=== PATIENT | female | born 1980 | race Caucasian/White ===

== ENCOUNTER 2020-06-24 22:09 | Emergency (ER) | payer OTHER ==
[~2020-06-24] VITALS: Ht 139.7 cm; Wt 52.7 kg
[~2020-06-24 22:09] MED LIST: KLON0.5T PO; KLON1TAB PO; KLON2TAB PO; PAXI10TA12 PO
[2020-06-24] MEDS ORDERED: CLON0.5T2 PO (22:31)
[2020-06-24 23:11] LABS: HEMATOCRIT 41.6 % (36.0-47.0); HEMOGLOBIN 14.1 g/dl (12.0-15.5); MEAN CORPUSCULAR HEMOGLOBIN 33.3 pg (27.0-33.0); MEAN CORPUSCULAR HGB CONC 33.9 g/dl (32.0-36.5); MEAN CORPUSCULAR VOLUME 98.3 fl (80.0-96.0); PLATELET COUNT, AUTOMATED 382 10^3/uL (150-450); RED BLOOD COUNT 4.23 10^6/uL (4.00-5.40); WHITE BLOOD COUNT 15.1 10^3/uL (4.0-10.0)
[2020-06-24 23:19] LABS: AMPHETAMINES LEVEL URINE NEGATIVE (NEGATIVE); BARBITURATES URINE NEGATIVE (NEGATIVE); BENZODIAZEPINES URINE NEGATIVE (NEGATIVE); CANNABINOIDS URINE NEGATIVE (NEGATIVE); COCAINE METABOLITE URINE NEGATIVE (NEGATIVE); METHADONE URINE NEGATIVE (NEGATIVE); OPIATES URINE NEGATIVE (NEGATIVE); PHENCYCLIDINE URINE NEGATIVE (NEGATIVE)
[2020-06-24 23:22] LABS: HCG, SERUM QUALITATIVE NEGATIVE (NEGATIVE)
[2020-06-24 23:48] LABS: ALT/SGPT 15 U/L (12-78); BILIRUBIN,DIRECT < 0.1 MG/DL (0.0-0.2); BILIRUBIN,TOTAL 0.3 MG/DL (0.2-1.0); BLOOD UREA NITROGEN 3 MG/DL (7-18); CALCIUM LEVEL 8.4 MG/DL (8.5-10.1); CARBON DIOXIDE LEVEL 25 MEQ/L (21-32); CHLORIDE LEVEL 102 MEQ/L (98-107); CREATININE FOR GFR 0.66 MG/DL (0.55-1.30); ETHYL ALCOHOL (ETHANOL) 0.202 % (0.000-0.010); GLOMERULAR FILTRATION RATE > 60.0 (>60); GLUCOSE, FASTING 104 MG/DL (70-100); POTASSIUM SERUM 3.5 MEQ/L (3.5-5.1); SODIUM LEVEL 135 MEQ/L (136-145); TOTAL PROTEIN 7.3 GM/DL (6.4-8.2)
[2020-06-24 23:49] LABS: ACETAMINOPHEN LEVEL < 2.0 UG/ML (10.0-30.0); SALICYLATE LEVEL 7.6 MG/DL (5.0-30.0)
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
[2020-06-25] MEDS ORDERED: [UNRECOGNIZED DRUG - OTHER] (04:54)
[2020-06-25] MEDS ORDERED: DULO1CAP4 PO (08:12)
[2020-06-25] MEDS ORDERED: OMEP-221 PO (11:44)
--- NOTE | 2020-06-25 16:13 | ECGEPIP ---
[facility] - ED Test Date: 2020-06-25 Pat Name: MAXIM GUILLORY Department: Room: - Gender: Female Senior Writer: JUSTUS : 1980 Requested By: Digna Escobedo Order Number: [id number] Reading MD: Digna Escobedo Measurements Intervals [place] Rate: 95 P: 72 [place]: 130 QRS: 47 QRSD: 79 T: 38 QT: 331 QTc: 417 Interpretive Statements SINUS RHYTHM WITH MARKED SINUS ARRHYTHMIA NONSPECIFIC ST T WAVE CHANGES LOW QRS [place]OLT[place] LIMB LEADS NO PRIOR ECG FOR COMPARISON Electronically Signed on 06-25-2020 16:13:04 EDT by Digna Escobedo
[2020-06-25 18:42] VITALS: BP 119/68
== END 2020-06-25 18:44 ==
LOC: M ED 22:09
DX: F10.129 Alcohol abuse with intoxication, unspecified (principal); T14.91XA Suicide attempt, initial encounter; T50.902A Poisoning by unspecified drugs, medicaments and biological substances, intentional self-harm, initial encounter; Y92.89 Other specified places as the place of occurrence of the external cause; F33.9 Major depressive disorder, recurrent, unspecified; Z79.899 Other long term (current) drug therapy
CPT/HCPCS: 36415; 70450; 72125; 80048; 80076; 80307; 82375; 84443; 84703; 85027; 93005; 99284; G0480; U0002

== ENCOUNTER 2021-04-15 16:30 | Emergency (ER) | payer OTHER ==
[~2021-04-15] VITALS: Ht 139.7 cm; Wt 50.9 kg
[~2021-04-15 16:30] MED LIST changes: +CLON0.5T2 PO; +DULO1CAP4 PO; +OMEP-221 PO; +[UNRECOGNIZED DRUG - OTHER]
[2021-04-15 16:58] VITALS: BP_DIAS 76
[2021-04-15 19:30] VITALS: BP_SYST 116
== END 2021-04-15 19:33 | disposition home or self-care (01) ==
LOC: M ED 16:30
DX: F33.9 Major depressive disorder, recurrent, unspecified (principal); F10.920 Alcohol use, unspecified with intoxication, uncomplicated; F17.200 Nicotine dependence, unspecified, uncomplicated; Z79.899 Other long term (current) drug therapy; Z81.8 Family history of other mental and behavioral disorders

== ENCOUNTER → 2022-06-28 | Outpatient (REF) | payer OTHER ==
[~2022-06-28] MED LIST changes: -OMEP-221 PO; +OMEP40CA5 PO
== END ==
LOC: M SFHCDERM 12:48
PROVIDERS: ATTEND Nurse Practitioner Family
DX: R21 Rash and other nonspecific skin eruption (principal)

== ENCOUNTER 2022-07-07 21:05 | Inpatient (IN) | payer OTHER ==
[~2022-07-07] VITALS: Ht 139.7 cm; Wt 35.1 kg
[2022-07-08 00:29] LABS: BASO # 0.1 10^3/uL (0.0-0.2); BASO % 1.1 % (0.0-1.0); EOS # 0.2 10^3/uL (0.0-0.5); EOS % 1.7 % (0.0-3.0); HEMATOCRIT 39.1 % (36.0-47.0); HEMOGLOBIN 13.6 g/dl (12.0-15.5); LYMPH # 3.6 10^3/uL (1.5-5.0); LYMPH % 36.4 % (24.0-44.0); MEAN CORPUSCULAR HEMOGLOBIN 33.9 pg (27.0-33.0); MEAN CORPUSCULAR HGB CONC 34.8 g/dl (32.0-36.5); MEAN CORPUSCULAR VOLUME 97.5 fl (80.0-96.0); MONO # 0.8 10^3/uL (0.0-0.8); MONO % 7.7 % (2.0-8.0); NEUTROPHILS # 5.2 10^3/uL (1.5-8.5); NEUTROPHILS % 52.8 % (36.0-66.0); PLATELET COUNT, AUTOMATED 531 10^3/uL (150-450); RED BLOOD COUNT 4.01 10^6/uL (4.00-5.40); WHITE BLOOD COUNT 9.8 10^3/uL (4.0-10.0)
[2022-07-08 00:39] LABS: INR 0.98; PROTHROMBIN TIME 13.2 SECONDS (12.5-14.5)
[2022-07-08] MEDS ORDERED: THERTAB52 PO (01:02)
[2022-07-08] MEDS ORDERED: HOME MED LIST COMPLETE! XX SCH (01:05)
[2022-07-08 01:19] LABS: ALBUMIN 3.1 GM/DL (3.2-5.2); ALT/SGPT 20 U/L (12-78); BILIRUBIN,TOTAL 0.4 MG/DL (0.2-1.0); BLOOD UREA NITROGEN 4 MG/DL (7-18); CALCIUM LEVEL 8.7 MG/DL (8.5-10.1); CARBON DIOXIDE LEVEL 26 MEQ/L (21-32); CHLORIDE LEVEL 109 MEQ/L (98-107); CREATININE FOR GFR 0.47 MG/DL (0.55-1.30); GLOMERULAR FILTRATION RATE > 60.0 (>58); GLUCOSE, FASTING 96 MG/DL (70-100); MAGNESIUM LEVEL 2.1 MG/DL (1.8-2.4); POTASSIUM SERUM 4.1 MEQ/L (3.5-5.1); SODIUM LEVEL 142 MEQ/L (136-145); TOTAL PROTEIN 6.5 GM/DL (6.4-8.2)
[2022-07-08] MEDS ORDERED: MORPHINE 4 MG/ML 1ML VIAL/SYRINGE IV ONE (01:30)
[2022-07-08] MEDS ORDERED: ONDANSETRON 4MG 2ML VIAL IV ONE (01:40)
[2022-07-08 02:33] LABS: RSV AMPLIFICATION NEGATIVE (NEGATIVE)
[2022-07-08] MEDS ORDERED: HEPARIN SOD (PORCINE) 5000UNITS/ML 1ML VIAL/SYRINGE SC SCH (06:00)
[2022-07-08] MEDS: DOCUSATE SODIUM 100MG CAPSULE PO SCH ×2 (09:29→19:59)
[2022-07-08] MEDS: ONDANSETRON 4MG ORAL DISINTEGRATING TAB PO PRN ×3 (09:30→22:23)
[2022-07-08] MEDS: traMADol 50 MG TAB PO PRN ×2 (09:30→16:01)
[2022-07-08] MEDS: ACETAMINOPHEN TAB 650MG DOSE (2X325MG) PO PRN (09:30)
[2022-07-08] MEDS ORDERED: TRAM50TA2 (09:35)
[2022-07-08] MEDS ORDERED: ONDA4TAB6 PO (09:35)
[2022-07-08 09:51] LABS: HEMATOCRIT 45.1 % (36.0-47.0); HEMOGLOBIN 14.8 g/dl (12.0-15.5); MEAN CORPUSCULAR HEMOGLOBIN 32.7 pg (27.0-33.0); MEAN CORPUSCULAR HGB CONC 32.8 g/dl (32.0-36.5); MEAN CORPUSCULAR VOLUME 99.6 fl (80.0-96.0); RED BLOOD COUNT 4.53 10^6/uL (4.00-5.40); WHITE BLOOD COUNT 10.3 10^3/uL (4.0-10.0)
[2022-07-08 10:00] LABS: BLOOD UREA NITROGEN 3 MG/DL (7-18); CALCIUM LEVEL 9.5 MG/DL (8.5-10.1); CARBON DIOXIDE LEVEL 29 MEQ/L (21-32); CHLORIDE LEVEL 106 MEQ/L (98-107); CREATININE FOR GFR 0.71 MG/DL (0.55-1.30); GLOMERULAR FILTRATION RATE > 60.0 (>58); GLUCOSE, FASTING 76 MG/DL (70-100); POTASSIUM SERUM 4.1 MEQ/L (3.5-5.1); SODIUM LEVEL 138 MEQ/L (136-145)
[2022-07-08 10:04] LABS: PLATELET COUNT, AUTOMATED 667 10^3/uL (150-450)
[2022-07-08] MEDS: HEPARIN DRIP 25,000 UNITS in IV 1 EA IV SCH ×2 (14:02→21:06)
[2022-07-08 14:20] VITALS: BP 127/77
[2022-07-08] MEDS ORDERED: MORPHINE 2 MG/ML 1ML VIAL IV PRN (17:10)
[2022-07-08 19:55] VITALS: BP 108/66
[2022-07-08] MEDS: HEPARIN SOD (PORCINE) 5000UNITS/ML 1ML VIAL/SYRINGE IV PRN (21:07)
[2022-07-09] MEDS ORDERED: PROMETHAZINE 25 MG TAB PO ONE (03:00)
[2022-07-09] MEDS: HEPARIN SOD (PORCINE) 5000UNITS/ML 1ML VIAL/SYRINGE IV PRN ×4 (04:21→18:42)
[2022-07-09] MEDS: HEPARIN DRIP 25,000 UNITS in IV 1 EA IV SCH (04:22)
[2022-07-09 05:35] VITALS: BP 103/61
[2022-07-09] MEDS: PERCOCET 5MG/325MG TAB PO PRN ×3 (06:30→18:43)
[2022-07-09] MEDS: DOCUSATE SODIUM 100MG CAPSULE PO SCH ×2 (09:29→20:14)
[2022-07-09] MEDS ORDERED: ISOVUE-370 76% 100ML VIAL As Ordered ONE (10:11)
[2022-07-09 11:09] LABS: BASO # 0.1 10^3/uL (0.0-0.2); EOS # 0.2 10^3/uL (0.0-0.5); HEMOGLOBIN 14.7 g/dl (12.0-15.5); LYMPH # 3.4 10^3/uL (1.5-5.0); LYMPH % 46.8 % (24.0-44.0); MEAN CORPUSCULAR HEMOGLOBIN 33.3 pg (27.0-33.0); MEAN CORPUSCULAR HGB CONC 33.4 g/dl (32.0-36.5); MEAN CORPUSCULAR VOLUME 99.8 fl (80.0-96.0); MONO # 0.5 10^3/uL (0.0-0.8); MONO % 7.2 % (2.0-8.0); NEUTROPHILS % 41.9 % (36.0-66.0); PLATELET COUNT, AUTOMATED 619 10^3/uL (150-450); RED BLOOD COUNT 4.41 10^6/uL (4.00-5.40); WHITE BLOOD COUNT 7.2 10^3/uL (4.0-10.0)
[2022-07-09 11:17] LABS: TOTAL PROTEIN 7.4 GM/DL (6.4-8.2)
[2022-07-09 12:03] LABS: ERYTHROCYTE SEDIMENTATION RATE 22 mm/hr (0-20)
[2022-07-09 12:35] LABS: ALBUMIN 3.6 GM/DL (3.2-5.2); ALT/SGPT 23 U/L (12-78); BILIRUBIN,TOTAL 0.4 MG/DL (0.2-1.0); BLOOD UREA NITROGEN 4 MG/DL (7-18); C REACTIVE PROTEIN QUANTITATIV 1.21 MG/DL (0.00-0.30); CALCIUM LEVEL 9.9 MG/DL (8.5-10.1); CARBON DIOXIDE LEVEL 28 MEQ/L (21-32); CHLORIDE LEVEL 102 MEQ/L (98-107); GLOMERULAR FILTRATION RATE > 60.0 (>58); GLUCOSE, FASTING 82 MG/DL (70-100); MAGNESIUM LEVEL 2.2 MG/DL (1.8-2.4); PHOSPHORUS LEVEL 5.1 MG/DL (2.5-4.9); POTASSIUM SERUM 4.2 MEQ/L (3.5-5.1); SODIUM LEVEL 136 MEQ/L (136-145); TOTAL PROTEIN 8.1 GM/DL (6.4-8.2)
[2022-07-09 13:30] LABS: HEPATITIS B SURFACE ANTIGEN NEGATIVE (NEGATIVE)
[2022-07-09] MEDS: ONDANSETRON 4MG ORAL DISINTEGRATING TAB PO PRN ×2 (13:56→20:14)
[2022-07-09 14:00] VITALS: BP 115/77
[2022-07-09 14:02] LABS: HEPATITIS B CORE ANTIBODY IGM NEGATIVE (NEGATIVE)
[2022-07-09 22:00] VITALS: BP 112/75
[2022-07-10] MEDS: PERCOCET 5MG/325MG TAB PO PRN ×3 (00:45→22:10)
[2022-07-10] MEDS ORDERED: PROMETHAZINE 25 MG TAB PO ONE (01:05)
[2022-07-10 06:00] VITALS: BP 117/76
[2022-07-10 06:18] LABS: HEMATOCRIT 44.1 % (36.0-47.0); HEMOGLOBIN 14.7 g/dl (12.0-15.5); MEAN CORPUSCULAR HEMOGLOBIN 32.8 pg (27.0-33.0); MEAN CORPUSCULAR HGB CONC 33.3 g/dl (32.0-36.5); MEAN CORPUSCULAR VOLUME 98.4 fl (80.0-96.0); PLATELET COUNT, AUTOMATED 597 10^3/uL (150-450); RED BLOOD COUNT 4.48 10^6/uL (4.00-5.40); WHITE BLOOD COUNT 7.4 10^3/uL (4.0-10.0)
[2022-07-10 06:30] LABS: INR 0.93; PROTHROMBIN TIME 12.7 SECONDS (12.5-14.5)
[2022-07-10] MEDS: HEPARIN DRIP 25,000 UNITS in IV 1 EA IV SCH (06:44)
[2022-07-10 07:31] LABS: ALBUMIN 3.4 GM/DL (3.2-5.2); ALT/SGPT 23 U/L (12-78); BILIRUBIN,TOTAL 0.3 MG/DL (0.2-1.0); BLOOD UREA NITROGEN 4 MG/DL (7-18); CALCIUM LEVEL 9.3 MG/DL (8.5-10.1); CARBON DIOXIDE LEVEL 28 MEQ/L (21-32); CHLORIDE LEVEL 103 MEQ/L (98-107); GLOMERULAR FILTRATION RATE > 60.0 (>58); GLUCOSE, FASTING 82 MG/DL (70-100); POTASSIUM SERUM 4.5 MEQ/L (3.5-5.1); SODIUM LEVEL 140 MEQ/L (136-145)
[2022-07-10 08:37] VITALS: BP 117/77
[2022-07-10 08:38] VITALS: BP 117/77
[2022-07-10] MEDS: DOCUSATE SODIUM 100MG CAPSULE PO SCH ×2 (09:42→20:16)
[2022-07-10] MEDS: ONDANSETRON 4MG ORAL DISINTEGRATING TAB PO PRN ×2 (10:24→23:43)
[2022-07-10 11:07] LABS: CHOLESTEROL LEVEL 104 MG/DL (<200); CHOLESTEROL RISK RATIO 2.311 (<5); HDL CHOLESTEROL 45 MG/DL (>40); NON-HDL-C 59 MG/DL; TRIGLYCERIDES LEVEL 110 MG/DL (<150)
[2022-07-10 12:53] LABS: HIV 1&2 SCREEN CENTAUR NEGATIVE (NEGATIVE)
[2022-07-10] MEDS: PROMETHAZINE 25 MG TAB PO PRN ×2 (13:00→22:17)
[2022-07-10 13:38] VITALS: BP 120/95
[2022-07-10 13:48] VITALS: BP 120/95
[2022-07-10] MEDS: clonazePAM 0.5 MG TAB PO PRN (14:05)
[2022-07-10] MEDS: HEPARIN SOD (PORCINE) 5000UNITS/ML 1ML VIAL/SYRINGE IV PRN (14:19)
[2022-07-10] MEDS: ASPIRIN 81 MG CHEW TABLET PO SCH (14:27)
[2022-07-10] MEDS ORDERED: ISOVUE-370 76% 100ML VIAL As Ordered ONE (15:01)
[2022-07-10 15:11] LABS: CARDIOLIPIN IGA ANTIBODY <9 APL U/mL (0-11); CARDIOLIPIN IGG ANTIBODY <9 GPL U/mL (0-14); CARDIOLIPIN IGM ANTIBODY 45 MPL U/mL (0-12)
[2022-07-10 17:11] LABS: FREE KAPPA LIGHT CHAINS SERUM 34.2 mg/L (3.3-19.4); FREE LAMBDA LIGHT CHAINS SERUM 33.3 mg/L (5.7-26.3); KAPPA/LAMBDA RATIO SERUM 1.03 (0.26-1.65)
[2022-07-10 20:30] VITALS: BP 121/81
[2022-07-11 04:07] LABS: ANTI THROMBIN 3 ANTIGEN IMMUNO 100 % (72-124); ANTI THROMBIN 3 FUNCT ACTIVITY 111 % (75-135)
[2022-07-11 05:07] VITALS: BP 110/63
[2022-07-11 05:52] LABS: BASO # 0.1 10^3/uL (0.0-0.2); BASO % 1.4 % (0.0-1.0); EOS # 0.3 10^3/uL (0.0-0.5); EOS % 4.3 % (0.0-3.0); HEMATOCRIT 43.1 % (36.0-47.0); HEMOGLOBIN 14.1 g/dl (12.0-15.5); LYMPH # 3.2 10^3/uL (1.5-5.0); LYMPH % 54.7 % (24.0-44.0); MEAN CORPUSCULAR HEMOGLOBIN 32.5 pg (27.0-33.0); MEAN CORPUSCULAR HGB CONC 32.7 g/dl (32.0-36.5); MEAN CORPUSCULAR VOLUME 99.3 fl (80.0-96.0); MONO # 0.4 10^3/uL (0.0-0.8); MONO % 7.2 % (2.0-8.0); NEUTROPHILS # 1.9 10^3/uL (1.5-8.5); NEUTROPHILS % 32.2 % (36.0-66.0); PLATELET COUNT, AUTOMATED 532 10^3/uL (150-450); RED BLOOD COUNT 4.34 10^6/uL (4.00-5.40); WHITE BLOOD COUNT 5.8 10^3/uL (4.0-10.0)
[2022-07-11 06:07] LABS: INR 0.96; PROTHROMBIN TIME 12.9 SECONDS (12.5-14.5)
[2022-07-11 06:59] LABS: ALBUMIN 3.2 GM/DL (3.2-5.2); ALT/SGPT 20 U/L (12-78); BILIRUBIN,TOTAL 0.3 MG/DL (0.2-1.0); BLOOD UREA NITROGEN 7 MG/DL (7-18); CARBON DIOXIDE LEVEL 31 MEQ/L (21-32); CHLORIDE LEVEL 102 MEQ/L (98-107); CREATININE FOR GFR 0.84 MG/DL (0.55-1.30); GLOMERULAR FILTRATION RATE > 60.0 (>58); GLUCOSE, FASTING 90 MG/DL (70-100); POTASSIUM SERUM 4.3 MEQ/L (3.5-5.1); SODIUM LEVEL 137 MEQ/L (136-145); TOTAL PROTEIN 6.8 GM/DL (6.4-8.2)
[2022-07-11 08:23] LABS: VITAMIN B12 LEVEL 403 PG/ML (247-911)
[2022-07-11 09:51] VITALS: BP 119/70
[2022-07-11 10:22] LABS: DRVV SCREEN 37.5 SEC
[2022-07-11] MEDS: PERCOCET 5MG/325MG TAB PO PRN ×2 (10:40→17:38)
[2022-07-11] MEDS: ONDANSETRON 4MG ORAL DISINTEGRATING TAB PO PRN (10:40)
[2022-07-11] MEDS: ASPIRIN 81 MG CHEW TABLET PO SCH (11:56)
[2022-07-11] MEDS: DOCUSATE SODIUM 100MG CAPSULE PO SCH ×2 (11:56→20:55)
[2022-07-11 13:01] LABS: ALBUMIN 3.73 GM/DL (3.29-5.55); ALBUMIN % 50.4 % (55.8-66.1); ALPHA-1-GLOBULIN % 5.8 % (2.9-4.9); ALPHA-1-GLOBULINS 0.43 GM/DL (0.17-0.41); ALPHA-2-GLOBULINS 1.04 GM/DL (0.42-0.99); ALPHA-2-GLOBULINS % 14.1 % (7.1-11.8); BETA-1-GLOBULINS % 4.6 % (4.7-7.2); BETA-2-GLOBULINS % 4.2 % (3.2-6.5); GAMMA GLOBULIN % 20.9 % (11.1-18.8)
[2022-07-11 13:02] LABS: BETA-1-GLOBULINS 0.34 GM/DL (0.28-0.60); BETA-2-GLOBULINS 0.31 GM/DL (0.19-0.55); GAMMA GLOBULINS 1.55 GM/DL (0.65-1.58)
[2022-07-11 13:08] LABS: JAK2 MUTATIONS FOR PATH SENDOU See Pathology Report
[2022-07-11] MEDS: HEPARIN DRIP 25,000 UNITS in IV 1 EA IV SCH (13:18)
[2022-07-11 13:21] LABS: ALBUMIN 3.48 GM/DL (3.29-5.55); ALBUMIN % 51.2 % (55.8-66.1); ALPHA-1-GLOBULIN % 5.5 % (2.9-4.9); ALPHA-1-GLOBULINS 0.37 GM/DL (0.17-0.41); ALPHA-2-GLOBULINS 0.92 GM/DL (0.42-0.99); ALPHA-2-GLOBULINS % 13.5 % (7.1-11.8); BETA-1-GLOBULINS 0.32 GM/DL (0.28-0.60); BETA-1-GLOBULINS % 4.7 % (4.7-7.2); BETA-2-GLOBULINS 0.29 GM/DL (0.19-0.55); BETA-2-GLOBULINS % 4.2 % (3.2-6.5); GAMMA GLOBULIN % 20.9 % (11.1-18.8); GAMMA GLOBULINS 1.42 GM/DL (0.65-1.58)
[2022-07-11] MEDS: DRONABINOL 2.5MG CAP (MARINOL) PO SCH ×2 (13:32→17:37)
[2022-07-11 14:00] VITALS: BP 118/83
[2022-07-11] MEDS ORDERED: INFLUENZA QUADRIVALENT PF VACCINE 0.5ML SYRINGE IM.IMMUN ONE (14:00)
[2022-07-11 14:08] LABS: ALDOLASE 2.8 U/L (3.3-10.3); HEPATITIS A IgG TOTAL Positive (Negative)
[2022-07-11] MEDS ORDERED: SENNA 8.6 MG TAB (SENOKOT) PO PRN (14:45)
[2022-07-11] MEDS: METAMUCIL (PSYLLIUM) PACKET PO SCH ×2 (15:51→20:54)
[2022-07-11] MEDS: MIRALAX *UNIT DOSE* 17GM PACKET PO SCH ×2 (15:51→20:54)
[2022-07-11] MEDS: clonazePAM 0.5 MG TAB PO PRN (15:51)
[2022-07-11] MEDS: WARFARIN SOD 5MG TAB PO SCH (17:37)
[2022-07-11 20:36] VITALS: BP 128/82
[2022-07-11] MEDS: PROMETHAZINE 25 MG TAB PO PRN (20:55)
[2022-07-12] MEDS: ONDANSETRON 4MG ORAL DISINTEGRATING TAB PO PRN ×3 (00:39→17:22)
[2022-07-12] MEDS: PERCOCET 5MG/325MG TAB PO PRN ×3 (00:41→17:19)
[2022-07-12 05:27] VITALS: BP 101/83
[2022-07-12] MEDS: ACETAMINOPHEN TAB 650MG DOSE (2X325MG) PO PRN (05:33)
[2022-07-12 06:21] LABS: BASO # 0.1 10^3/uL (0.0-0.2); EOS # 0.2 10^3/uL (0.0-0.5); EOS % 3.5 % (0.0-3.0); HEMATOCRIT 42.2 % (36.0-47.0); LYMPH # 2.8 10^3/uL (1.5-5.0); LYMPH % 48.2 % (24.0-44.0); MEAN CORPUSCULAR HEMOGLOBIN 32.6 pg (27.0-33.0); MEAN CORPUSCULAR HGB CONC 33.2 g/dl (32.0-36.5); MEAN CORPUSCULAR VOLUME 98.4 fl (80.0-96.0); MONO # 0.5 10^3/uL (0.0-0.8); MONO % 8.7 % (2.0-8.0); NEUTROPHILS # 2.2 10^3/uL (1.5-8.5); NEUTROPHILS % 38.4 % (36.0-66.0); PLATELET COUNT, AUTOMATED 528 10^3/uL (150-450); RED BLOOD COUNT 4.29 10^6/uL (4.00-5.40); WHITE BLOOD COUNT 5.8 10^3/uL (4.0-10.0)
[2022-07-12 06:31] LABS: INR 1.09; PROTHROMBIN TIME 14.4 SECONDS (12.5-14.5)
[2022-07-12 06:50] LABS: ALBUMIN 3.5 GM/DL (3.2-5.2); ALT/SGPT 25 U/L (12-78); BILIRUBIN,TOTAL 0.4 MG/DL (0.2-1.0); BLOOD UREA NITROGEN 4 MG/DL (7-18); CARBON DIOXIDE LEVEL 30 MEQ/L (21-32); CHLORIDE LEVEL 102 MEQ/L (98-107); CREATININE FOR GFR 0.82 MG/DL (0.55-1.30); GLOMERULAR FILTRATION RATE > 60.0 (>58); GLUCOSE, FASTING 125 MG/DL (70-100); POTASSIUM SERUM 3.9 MEQ/L (3.5-5.1); SODIUM LEVEL 139 MEQ/L (136-145)
[2022-07-12 07:18] LABS: PARTIAL THROMBOPLASTIN TIME 75.1 SECONDS (24.8-34.2)
[2022-07-12 07:30] VITALS: BP 125/80
[2022-07-12] MEDS: DRONABINOL 2.5MG CAP (MARINOL) PO SCH ×3 (08:01→17:18)
[2022-07-12] MEDS: DOCUSATE SODIUM 100MG CAPSULE PO SCH ×2 (08:11→20:26)
[2022-07-12] MEDS: ASPIRIN 81 MG CHEW TABLET PO SCH (08:11)
[2022-07-12] MEDS: METAMUCIL (PSYLLIUM) PACKET PO SCH ×2 (10:46→20:26)
[2022-07-12] MEDS: MIRALAX *UNIT DOSE* 17GM PACKET PO SCH ×2 (10:46→20:26)
[2022-07-12] MEDS: PROMETHAZINE 25 MG TAB PO PRN (12:01)
[2022-07-12] MEDS ORDERED: MOM 30ML SUSPENSION UDC PO PRN (13:20)
[2022-07-12 13:30] VITALS: BP 123/82
[2022-07-12] MEDS: HEPARIN DRIP 25,000 UNITS in IV 1 EA IV SCH (14:32)
[2022-07-12 15:47] LABS: COMPLEMENT C3 123 MG/DL (90-180); COMPLEMENT C4 27 MG/DL (10-40)
[2022-07-12 16:07] LABS: BACTERIA, URINE SMALL AMOUNT; RBC, URINE NONE SEEN /hpf (0-3); SQUAMOUS EPITHELIAL CELL URINE MOD AMOUNT /hpf (SMALL AMT); WBC, URINE 0-1 /hpf (0-3)
[2022-07-12 16:20] LABS: CREATININE,RANDOM URINE 42.8 MG/DL; TOTAL PROTEIN,RANDOM URINE 5.3 MG/DL (0.0-12.0)
[2022-07-12] MEDS: WARFARIN SOD 5MG TAB PO SCH (17:19)
[2022-07-12 21:02] VITALS: BP 127/86
[2022-07-12] MEDS: clonazePAM 0.5 MG TAB PO PRN (21:05)
[2022-07-13 06:00] VITALS: BP 124/86
[2022-07-13] MEDS: PROMETHAZINE 25 MG TAB PO PRN ×2 (06:03→18:57)
[2022-07-13] MEDS: PERCOCET 5MG/325MG TAB PO PRN ×3 (06:04→21:37)
[2022-07-13 06:17] LABS: BASO # 0.1 10^3/uL (0.0-0.2); BASO % 1.2 % (0.0-1.0); EOS # 0.2 10^3/uL (0.0-0.5); EOS % 3.7 % (0.0-3.0); HEMATOCRIT 43.4 % (36.0-47.0); HEMOGLOBIN 14.1 g/dl (12.0-15.5); LYMPH # 2.9 10^3/uL (1.5-5.0); LYMPH % 50.3 % (24.0-44.0); MEAN CORPUSCULAR HEMOGLOBIN 32.7 pg (27.0-33.0); MEAN CORPUSCULAR HGB CONC 32.5 g/dl (32.0-36.5); MEAN CORPUSCULAR VOLUME 100.7 fl (80.0-96.0); MONO # 0.5 10^3/uL (0.0-0.8); MONO % 8.2 % (2.0-8.0); NEUTROPHILS # 2.1 10^3/uL (1.5-8.5); NEUTROPHILS % 36.4 % (36.0-66.0); PLATELET COUNT, AUTOMATED 519 10^3/uL (150-450); RED BLOOD COUNT 4.31 10^6/uL (4.00-5.40); WHITE BLOOD COUNT 5.7 10^3/uL (4.0-10.0)
[2022-07-13 06:34] LABS: INR 1.69; PROTHROMBIN TIME 20.2 SECONDS (12.5-14.5)
[2022-07-13 06:46] LABS: ALBUMIN 3.6 GM/DL (3.2-5.2); ALT/SGPT 40 U/L (12-78); BILIRUBIN,TOTAL 0.4 MG/DL (0.2-1.0); BLOOD UREA NITROGEN 10 MG/DL (7-18); CALCIUM LEVEL 9.3 MG/DL (8.5-10.1); CARBON DIOXIDE LEVEL 29 MEQ/L (21-32); CHLORIDE LEVEL 101 MEQ/L (98-107); CREATININE FOR GFR 0.76 MG/DL (0.55-1.30); GLOMERULAR FILTRATION RATE > 60.0 (>58); GLUCOSE, FASTING 106 MG/DL (70-100); POTASSIUM SERUM 4.3 MEQ/L (3.5-5.1); SODIUM LEVEL 137 MEQ/L (136-145)
[2022-07-13 06:58] LABS: PARTIAL THROMBOPLASTIN TIME 100.6 SECONDS (24.8-34.2)
[2022-07-13 08:00] VITALS: BP 117/71
[2022-07-13] MEDS: DRONABINOL 2.5MG CAP (MARINOL) PO SCH ×3 (08:26→17:42)
[2022-07-13] MEDS: ONDANSETRON 4MG ORAL DISINTEGRATING TAB PO PRN ×3 (09:48→21:36)
[2022-07-13] MEDS: METAMUCIL (PSYLLIUM) PACKET PO SCH ×2 (11:54→20:06)
[2022-07-13] MEDS: MIRALAX *UNIT DOSE* 17GM PACKET PO SCH ×2 (11:55→20:06)
[2022-07-13] MEDS: ASPIRIN 81 MG CHEW TABLET PO SCH (11:55)
[2022-07-13] MEDS: DOCUSATE SODIUM 100MG CAPSULE PO SCH ×2 (11:56→20:06)
[2022-07-13 13:59] VITALS: BP 130/91
[2022-07-13] MEDS ORDERED: PROMETHAZINE 25 MG TAB PO PRN (14:00)
[2022-07-13] MEDS: WARFARIN SOD 5MG TAB PO SCH (17:43)
[2022-07-13] MEDS ORDERED: ONDANSETRON 4MG ORAL DISINTEGRATING TAB PO PRN (18:00)
[2022-07-13] MEDS: HEPARIN DRIP 25,000 UNITS in IV 1 EA IV SCH (18:27)
[2022-07-13 22:00] VITALS: BP 119/75
[2022-07-13] MEDS: clonazePAM 0.5 MG TAB PO PRN (22:28)
[2022-07-14 06:00] VITALS: BP 118/81
[2022-07-14 06:16] LABS: BASO # 0.1 10^3/uL (0.0-0.2); BASO % 1.1 % (0.0-1.0); EOS # 0.3 10^3/uL (0.0-0.5); EOS % 5.4 % (0.0-3.0); HEMATOCRIT 38.1 % (36.0-47.0); HEMOGLOBIN 12.6 g/dl (12.0-15.5); LYMPH # 3.1 10^3/uL (1.5-5.0); LYMPH % 58.8 % (24.0-44.0); MEAN CORPUSCULAR HEMOGLOBIN 32.9 pg (27.0-33.0); MEAN CORPUSCULAR HGB CONC 33.1 g/dl (32.0-36.5); MEAN CORPUSCULAR VOLUME 99.5 fl (80.0-96.0); MONO # 0.5 10^3/uL (0.0-0.8); MONO % 9.2 % (2.0-8.0); NEUTROPHILS # 1.3 10^3/uL (1.5-8.5); NEUTROPHILS % 25.3 % (36.0-66.0); PLATELET COUNT, AUTOMATED 441 10^3/uL (150-450); RED BLOOD COUNT 3.83 10^6/uL (4.00-5.40); WHITE BLOOD COUNT 5.2 10^3/uL (4.0-10.0)
[2022-07-14] MEDS: PROMETHAZINE 25 MG TAB PO PRN (06:26)
[2022-07-14] MEDS: PERCOCET 5MG/325MG TAB PO PRN (06:26)
[2022-07-14 06:27] LABS: INR 2.21; PROTHROMBIN TIME 24.9 SECONDS (12.5-14.5)
[2022-07-14 06:58] LABS: ALBUMIN 3.2 GM/DL (3.2-5.2); ALT/SGPT 55 U/L (12-78); BILIRUBIN,TOTAL 0.3 MG/DL (0.2-1.0); BLOOD UREA NITROGEN 10 MG/DL (7-18); CALCIUM LEVEL 9.1 MG/DL (8.5-10.1); CARBON DIOXIDE LEVEL 29 MEQ/L (21-32); CHLORIDE LEVEL 106 MEQ/L (98-107); CREATININE FOR GFR 0.81 MG/DL (0.55-1.30); GLOMERULAR FILTRATION RATE > 60.0 (>58); GLUCOSE, FASTING 88 MG/DL (70-100); POTASSIUM SERUM 4.1 MEQ/L (3.5-5.1); SODIUM LEVEL 141 MEQ/L (136-145); TOTAL PROTEIN 6.4 GM/DL (6.4-8.2)
[2022-07-14] MEDS: MIRALAX *UNIT DOSE* 17GM PACKET PO SCH (08:09)
[2022-07-14] MEDS: ASPIRIN 81 MG CHEW TABLET PO SCH (08:09)
[2022-07-14] MEDS: METAMUCIL (PSYLLIUM) PACKET PO SCH (08:09)
[2022-07-14] MEDS: DOCUSATE SODIUM 100MG CAPSULE PO SCH (08:09)
[2022-07-14] MEDS: DRONABINOL 2.5MG CAP (MARINOL) PO SCH (08:10)
[2022-07-14] MEDS ORDERED: LIDO1PAD TOP (09:51)
[2022-07-14] MEDS ORDERED: DRON2.5C11 PO (09:51)
[2022-07-14] MEDS ORDERED: ACET1TAB55 PO (09:51)
[2022-07-14] MEDS ORDERED: DICL1GEL3 TOP (09:51)
[2022-07-14] MEDS ORDERED: ASPI81CH8 PO (09:51)
[2022-07-14] MEDS ORDERED: MOM30SS2 PO (09:51)
[2022-07-14] MEDS ORDERED: MIRA1POW3 PO (09:51)
[2022-07-14] MEDS ORDERED: META1POW PO (09:51)
[2022-07-14] MEDS ORDERED: JANT5TAB PO (09:51)
[2022-07-14] MEDS ORDERED: COLA100C5 PO (09:51)
[2022-07-14] MEDS ORDERED: OXYC-517 PO (09:51)
[2022-07-14] MEDS ORDERED: PROM25TA12 PO (09:51)
[2022-07-14] MEDS: ACETAMINOPHEN TAB 650MG DOSE (2X325MG) PO PRN (10:07)
[2022-07-14] MEDS: ONDANSETRON 4MG ORAL DISINTEGRATING TAB PO PRN (10:07)
[2022-07-15 15:07] LABS: BETA-2 GLYCOPROTEIN I ABY IGA <9 (0-25); BETA-2 GLYCOPROTEIN I ABY IGG <9 (0-20); BETA-2 GLYCOPROTEIN I ABY IGM <9 (0-32)
[2022-07-16 15:07] LABS: ANA (HEP2) Negative (.); ANTI DS-DNA AB Negative (Negative); COMPLEMENT TOTAL (CH50) > 60 U/mL (>41)
[2022-07-16 17:07] LABS: ANTI THROMBIN 3 ANTIGEN IMMUNO 95 % (72-124); ANTI THROMBIN 3 FUNCT ACTIVITY 109 % (75-135); ANTINUCLEAR ANTIBODIES DIRECT Negative (Negative); PROTEIN C ANTIGEN 111 % (60-150); PROTEIN C FUNCTIONAL ACTIVITY 108 % (73-180); PROTEIN C RESISTANCE ACTIVATED 2.8 ratio (2.2-3.5); PROTEIN S ANTIGEN FREE 91 % (61-136); PROTEIN S ANTIGEN TOTAL 134 % (60-150); PROTEIN S FUNCTIONAL ACTIVITY 94 % (63-140)
== END 2022-07-14 11:55 | disposition home or self-care (01) | DRG 663 ==
LOC: M ED 21:05 → M ED INP 07-08 01:27 → ENRESERV 07-08 13:30 → M MSPAV 07-08 14:09
PROVIDERS: ADMIT Internal Medicine; ATTEND Student in an Organized Health Care Education/Training Program
DX: D73.5 Infarction of spleen (principal); D68.61 Antiphospholipid syndrome; K76.0 Fatty (change of) liver, not elsewhere classified; F17.210 Nicotine dependence, cigarettes, uncomplicated; R63.4 Abnormal weight loss; D47.3 Essential (hemorrhagic) thrombocythemia; R11.2 Nausea with vomiting, unspecified; R91.1 Solitary pulmonary nodule; K59.00 Constipation, unspecified; M62.81 Muscle weakness (generalized); L93.0 Discoid lupus erythematosus; N83.201 Unspecified ovarian cyst, right side; B15.9 Hepatitis A without hepatic coma; M54.9 Dorsalgia, unspecified; G89.29 Other chronic pain; Z68.1 Body mass index [BMI] 19.9 or less, adult; K52.9 Noninfective gastroenteritis and colitis, unspecified; R63.1 Polydipsia; R35.0 Frequency of micturition; Z79.899 Other long term (current) drug therapy; Z98.84 Bariatric surgery status

== ENCOUNTER → 2022-08-13 | Outpatient (CLI) | payer OTHER ==
[~2022-08-13] MED LIST changes: +ACET1TAB55 PO; +ASPI81CH8 PO; +COLA100C5 PO; +DICL1GEL3 TOP; +DRON2.5C11 PO; +JANT5TAB PO; +LIDO1PAD TOP; +META1POW PO; +MIRA1POW3 PO; +MOM30SS2 PO; +ONDA4TAB6 PO; +OXYC-517 PO; -PAXI10TA12 PO; +PAXI10TA13 PO; +PROM25TA12 PO; +THERTAB52 PO; +TRAM50TA2
== END ==
LOC: M PLARAD 10:42
PROVIDERS: ATTEND Physician Assistant
DX: R91.1 Solitary pulmonary nodule (principal)

== ENCOUNTER → 2022-08-14 | Outpatient (CLI) | payer OTHER ==
[2022-08-14 16:19] LABS: INR 2.42; PROTHROMBIN TIME 26.7 SECONDS (12.5-14.5)
== END ==
LOC: M PLALAB 14:40
PROVIDERS: ATTEND Student in an Organized Health Care Education/Training Program
DX: D73.5 Infarction of spleen (principal); Z79.01 Long term (current) use of anticoagulants

== ENCOUNTER → 2022-09-10 | Outpatient (REF) | payer OTHER ==
[2022-09-10 19:04] LABS: INR 1.9; PROTHROMBIN TIME 22.1 SECONDS (12.5-14.5)
== END ==
LOC: M SFHCPLAZ 15:03
PROVIDERS: ATTEND Student in an Organized Health Care Education/Training Program
DX: D73.5 Infarction of spleen (principal)

== ENCOUNTER → 2022-09-24 | Outpatient (CLI) | payer OTHER ==
[2022-09-24 18:01] LABS: INR 2.83; PROTHROMBIN TIME 30.2 SECONDS (12.5-14.5)
[2022-09-24 18:11] LABS: MAGNESIUM LEVEL 1.8 MG/DL (1.8-2.4)
[2022-09-24 18:13] LABS: ALBUMIN 4.2 G/DL (3.2-5.2); ALKALINE PHOSPHATASE 90 U/L (46-116); ALT/SGPT 14 U/L (7.0-40); AST/SGOT 25 U/L (<34); BILIRUBIN,TOTAL 0.3 MG/DL (0.3-1.2); BLOOD UREA NITROGEN 7 MG/DL (9-23); CARBON DIOXIDE LEVEL 29 MMOL/L (20-31); CHLORIDE LEVEL 107 MMOL/L (98-107); CREATININE FOR GFR 0.56 MG/DL (0.55-1.30); GLOMERULAR FILTRATION RATE > 60.0 (>58); GLUCOSE, FASTING 84 MG/DL (60-100); PHOSPHORUS LEVEL 3.5 MG/DL (2.5-4.9); SODIUM LEVEL 141 MMOL/L (136-145); TOTAL PROTEIN 7.3 G/DL (5.7-8.2)
== END ==
LOC: M PLALAB 14:38
PROVIDERS: ATTEND Student in an Organized Health Care Education/Training Program
DX: D73.5 Infarction of spleen (principal); R56.9 Unspecified convulsions; Z79.01 Long term (current) use of anticoagulants

== ENCOUNTER → 2022-10-08 | Outpatient (CLI) | payer OTHER ==
[2022-10-08 15:09] LABS: INR 1.93; PROTHROMBIN TIME 22.4 SECONDS (12.5-14.5)
== END ==
LOC: M PLALAB 11:34
PROVIDERS: ATTEND Family Medicine
DX: D68.61 Antiphospholipid syndrome (principal)

== ENCOUNTER → 2022-10-08 | Outpatient (CLI) | payer OTHER ==
[2022-10-08 17:36] LABS: INR 1.83; PROTHROMBIN TIME 21.5 SECONDS (12.5-14.5)
[2022-10-08 17:37] LABS: MAGNESIUM LEVEL 1.9 MG/DL (1.8-2.4)
[2022-10-08 17:39] LABS: C REACTIVE PROTEIN QUANTITATIV < 0.40 MG/DL (<1.0); FOLLICLE STIMULATING HORMONE 8.8 mIU/ML
[2022-10-08 17:40] LABS: PROLACTIN 4.03 NG/ML
[2022-10-08 17:41] LABS: THYROID STIMULATING HORMONE 0.907 uIU/ML (0.55-4.78)
[2022-10-08 17:44] LABS: CPK CREATINE PHOSPHOKINASE 77 U/L (34-145)
== END ==
LOC: M PLALAB 14:32
PROVIDERS: ATTEND Student in an Organized Health Care Education/Training Program
DX: M79.10 Myalgia, unspecified site (principal); D73.5 Infarction of spleen; N64.52 Nipple discharge

== ENCOUNTER → 2022-10-10 | Outpatient (REF) | payer OTHER ==
[2022-10-10 16:33] LABS: APPEARANCE, URINE MANUAL CLOUDY (CLEAR); COLOR, URINE MANUAL YELLOW (YELLOW)
[2022-10-10 16:34] LABS: BILIRUBIN, URINE MANUAL NEGATIVE (NEGATIVE); BLOOD URINE MANUAL NEGATIVE (NEGATIVE); GLUCOSE, URINE (UA) MANUAL NEGATIVE (NEGATIVE); KETONE, URINE MANUAL NEGATIVE (NEGATIVE); LEUKOCYTE ESTERASE, URINE MAN NEGATIVE (NEGATIVE); NITRITE, URINE MANUAL NEGATIVE (NEGATIVE); PROTEIN, URINE MANUAL TRACE mg/dL (NEGATIVE); UROBILINOGEN, URINE MANUAL NORMAL (NORMAL)
[2022-10-10 16:41] LABS: BASO # 0.1 10^3/uL (0.0-0.2); BASO % 0.8 % (0.0-1.0); EOS % 0.6 % (0.0-3.0); HEMATOCRIT 40.4 % (36.0-47.0); HEMOGLOBIN 13.3 g/dl (12.0-15.5); LYMPH # 2.8 10^3/uL (1.5-5.0); LYMPH % 38.4 % (24.0-44.0); MEAN CORPUSCULAR HEMOGLOBIN 32.9 pg (27.0-33.0); MEAN CORPUSCULAR HGB CONC 32.9 g/dl (32.0-36.5); MONO # 0.5 10^3/uL (0.0-0.8); MONO % 6.5 % (2.0-8.0); NEUTROPHILS # 3.9 10^3/uL (1.5-8.5); NEUTROPHILS % 53.4 % (36.0-66.0); PLATELET COUNT, AUTOMATED 466 10^3/uL (150-450); RED BLOOD COUNT 4.04 10^6/uL (4.00-5.40); WHITE BLOOD COUNT 7.2 10^3/uL (4.0-10.0)
[2022-10-10 16:51] LABS: ERYTHROCYTE SEDIMENTATION RATE 9 mm/hr (0-20)
[2022-10-10 17:03] LABS: TOTAL PROTEIN,RANDOM URINE 11.1 MG/DL (0.0-14.0)
[2022-10-10 17:05] LABS: AMORPHOUS SEDIMENT, URINE SMALL AMOUNT (NEGATIVE); BACTERIA, URINE LARGE AMOUNT; CREATININE,RANDOM URINE 120.1 MG/DL; HYALINE CAST, URINE NONE SEEN /lpf (0-1); RBC, URINE 0-1 /hpf (0-3); SQUAMOUS EPITHELIAL CELL URINE SMALL AMOUNT /hpf (SMALL AMT)
[2022-10-10 17:06] LABS: C REACTIVE PROTEIN QUANTITATIV < 0.40 MG/DL (<1.0)
[2022-10-10 17:07] LABS: COMPLEMENT C3 99.9 MG/DL (90.0-170.0); COMPLEMENT C4 16.1 MG/DL (12-36)
[2022-10-10 17:30] LABS: ALBUMIN 4.2 G/DL (3.2-5.2); ALKALINE PHOSPHATASE 96 U/L (46-116); ALT/SGPT 16 U/L (7.0-40); AST/SGOT 18 U/L (<34); BILIRUBIN,TOTAL 0.3 MG/DL (0.3-1.2); BLOOD UREA NITROGEN 9 MG/DL (9-23); CARBON DIOXIDE LEVEL 26 MMOL/L (20-31); CHLORIDE LEVEL 103 MMOL/L (98-107); CREATININE FOR GFR 0.53 MG/DL (0.55-1.30); GLOMERULAR FILTRATION RATE > 60.0 (>58); GLUCOSE, FASTING 104 MG/DL (60-100); POTASSIUM SERUM 4.3 MMOL/L (3.5-5.1); SODIUM LEVEL 138 MMOL/L (136-145); TOTAL PROTEIN 7.1 G/DL (5.7-8.2)
== END ==
LOC: M SFHCRHEU 12:58
PROVIDERS: ATTEND Internal Medicine Rheumatology
DX: L93.2 Other local lupus erythematosus (principal); R76.0 Raised antibody titer; D73.5 Infarction of spleen; I73.00 Raynaud's syndrome without gangrene; Z72.0 Tobacco use; R76.8 Other specified abnormal immunological findings in serum

== ENCOUNTER → 2022-10-10 | Outpatient (CLI) | payer OTHER | LOC: M PLAIMG 10:02 | PROVIDERS: ATTEND Student in an Organized Health Care Education/Training Program | DX: R56.9 Unspecified convulsions (principal) ==

== ENCOUNTER → 2022-11-07 | Outpatient (CLI) | payer MEDICARE, MEDICAID ==
[~2022-11-07] MED LIST changes: +CYCL7.5T32; +ELIQ2.5T PO; +VITA200016
[2022-11-07 13:59] LABS: INR 2.29; PROTHROMBIN TIME 25.6 SECONDS (12.5-14.5)
== END ==
LOC: M PLALAB 09:10
PROVIDERS: ATTEND Student in an Organized Health Care Education/Training Program
DX: D73.5 Infarction of spleen (principal)

== ENCOUNTER → 2022-11-28 | Outpatient (CLI) | payer MEDICARE, MEDICAID | LOC: M PLALAB 08:55 | PROVIDERS: ATTEND Nurse Practitioner Women's Health | DX: Z13.79 Encounter for other screening for genetic and chromosomal anomalies (principal) ==

== ENCOUNTER → 2022-11-28 | Outpatient (CLI) | payer MEDICAID ==
[~2022-11-28] MED LIST changes: -CYCL7.5T32; -ELIQ2.5T PO; -VITA200016
[2022-11-28 11:42] LABS: INR 1.45; PROTHROMBIN TIME 17.9 SECONDS (12.5-14.5)
== END ==
LOC: M PLALAB 08:51
PROVIDERS: ATTEND Family Medicine
DX: D68.61 Antiphospholipid syndrome (principal)

== ENCOUNTER → 2022-12-07 | Outpatient (CLI) | payer MEDICARE, MEDICAID ==
[~2022-12-07] MED LIST changes: +CYCL7.5T32; +ELIQ2.5T PO; +VITA200016
[2022-12-07 15:45] LABS: INR 3.59; PROTHROMBIN TIME 36.4 SECONDS (12.5-14.5)
== END ==
LOC: M PLALAB 13:58
PROVIDERS: ATTEND Student in an Organized Health Care Education/Training Program
DX: R76.0 Raised antibody titer (principal); K76.0 Fatty (change of) liver, not elsewhere classified

== ENCOUNTER → 2022-12-14 | Outpatient (CLI) | payer MEDICARE, MEDICAID | LOC: M PLARAD 08:04 | PROVIDERS: ATTEND Student in an Organized Health Care Education/Training Program | DX: H53.9 Unspecified visual disturbance (principal) ==

== ENCOUNTER → 2023-01-03 | Outpatient (CLI) | payer MEDICAID ==
[~2023-01-03] MED LIST changes: +ISOVUE-370 76% 100ML VIAL As Ordered ONE
== END ==
LOC: M RAD 14:20
PROVIDERS: ATTEND Internal Medicine Pulmonary Disease
DX: R59.0 Localized enlarged lymph nodes (principal)
CPT/HCPCS: 71260; Q9967

== ENCOUNTER → 2023-07-17 | Outpatient (REF) | payer MEDICAID ==
[~2023-07-17] MED LIST changes: +CLON-952 PO; +DICL100G10 TOP; -DICL1GEL3 TOP; -ISOVUE-370 76% 100ML VIAL As Ordered ONE; -KLON2TAB PO
[2023-07-17 13:53] LABS: APPEARANCE, URINE CLEAR (CLEAR); BACTERIA, URINE AUTO 1+ (NEGATIVE); BILIRUBIN, URINE AUTO NEGATIVE (NEGATIVE); BLOOD, URINE BLOOD NEGATIVE (NEGATIVE); COLOR, URINE YELLOW (YELLOW); GLUCOSE, URINE (UA) AUTO NEGATIVE (NEGATIVE); KETONE, URINE AUTO NEGATIVE (NEGATIVE); LEUKOCYTE ESTERASE, URINE AUTO NEGATIVE (NEGATIVE); NITRITE, URINE AUTO NEGATIVE (NEGATIVE); PROTEIN, URINE AUTO NEGATIVE (NEGATIVE); RBC, URINE AUTO 0 /HPF (0-3); SPECIFIC GRAVITY URINE AUTO 1.005 (1.002-1.035); SQUAMOUS EPITHELIAL CELL UR AU 2 /HPF (0-6); UROBILINOGEN, URINE AUTO 0.2 mg/dL (0.0-2.0); WBC, URINE AUTO 0 /HPF (0-3)
== END ==
LOC: M SFHCPLAZ 12:55
PROVIDERS: ATTEND Student in an Organized Health Care Education/Training Program
DX: R39.9 Unspecified symptoms and signs involving the genitourinary system (principal)

== ENCOUNTER 2023-07-27 10:02 | Inpatient (IN) | payer MEDICARE, MEDICAID ==
[~2023-07-27] VITALS: Ht 139.7 cm; Wt 51.0 kg
[2023-07-27 12:00] VITALS: BP 148/93; TEMP 96.4; O2SAT 97
[2023-07-27] MEDS ORDERED: NS 1,000 ML IV SCH (12:10)
[2023-07-27] MEDS ORDERED: MORPHINE 2 MG/ML 1ML VIAL IV PRN (12:15)
[2023-07-27 12:49] LABS: BASO # 0.1 10^3/uL (0.0-0.2); BASO % 0.2 % (0.0-1.0); HEMATOCRIT 45.5 % (36.0-47.0); HEMOGLOBIN 15.6 g/dl (12.0-15.5); LYMPH # 0.9 10^3/uL (1.5-5.0); LYMPH % 3.5 % (24.0-44.0); MEAN CORPUSCULAR HEMOGLOBIN 32.9 pg (27.0-33.0); MEAN CORPUSCULAR HGB CONC 34.3 g/dl (32.0-36.5); MONO % 3.8 % (2.0-8.0); NEUTROPHILS # 24.9 10^3/uL (1.5-8.5); NEUTROPHILS % 91.9 % (36.0-66.0); PLATELET COUNT, AUTOMATED 642 10^3/uL (150-450); RED BLOOD COUNT 4.74 10^6/uL (4.00-5.40); WHITE BLOOD COUNT 27.1 10^3/uL (4.0-10.0)
[2023-07-27 13:01] LABS: INR 1.07; PROTHROMBIN TIME 13.6 SECONDS (12.5-14.5)
[2023-07-27 13:21] LABS: ALBUMIN 3.4 G/DL (3.2-5.2); ALKALINE PHOSPHATASE 97 U/L (46-116); ALT/SGPT < 9 U/L (7.0-40); AST/SGOT 9 U/L (<34); BILIRUBIN,TOTAL 0.5 MG/DL (0.3-1.2); BLOOD UREA NITROGEN 11 MG/DL (9-23); CALCIUM LEVEL 8.6 MG/DL (8.5-10.1); CARBON DIOXIDE LEVEL 21 MMOL/L (20-31); CHLORIDE LEVEL 107 MMOL/L (98-107); GLOMERULAR FILTRATION RATE > 60.0 (>58); GLUCOSE, FASTING 309 MG/DL (60-100); SODIUM LEVEL 141 MMOL/L (136-145); TOTAL PROTEIN 6.5 G/DL (5.7-8.2)
[2023-07-27] MEDS ORDERED: ISOVUE-370 76% 100ML VIAL As Ordered ONE (13:25)
[2023-07-27] MEDS ORDERED: GLUCOSE 4GM CHEW TABLET PO PRN (13:35)
[2023-07-27] MEDS ORDERED: GLUCAGON INJ 1MG VIAL SC PRN (13:35)
[2023-07-27] MEDS ORDERED: DEXTROSE 50% 50ML SYRINGE IV PRN (13:35)
[2023-07-27] MEDS ORDERED: NS 1,000 ML IV ONE (13:35)
[2023-07-27] MEDS: INSULIN LISPRO (NovoLOG) PER UNIT SC SCH ×2 (14:38→18:00)
[2023-07-27] MEDS ORDERED: METOPROLOL 5 MG/5 ML VIAL IV STA (15:13)
[2023-07-27] MEDS ORDERED: LIDOCAINE 1% SDV 30ML VIAL As Ordered ONE (16:00)
[2023-07-27] MEDS ORDERED: PIPERACILLIN/TAZOBACTAM SOD 4.5 GM in D5W MINI-BAG PLUS 50 ML IV SCH (16:00)
[2023-07-27] MEDS ORDERED: LIDOCAINE 1% SDV 30ML VIAL ONE (16:00)
[2023-07-27] MEDS ORDERED: ZOSYN 3.375GM VIAL As Ordered ONE (16:56)
[2023-07-27] MEDS ORDERED: ZOSYN 3.375GM VIAL ONE (16:56)
[2023-07-27] MEDS: PIPERACILLIN/TAZOBACTAM SOD 3.375 GM in D5W MINI-BAG PLUS 50 ML IV SCH ×2 (17:22→23:11)
[2023-07-27] MEDS ORDERED: ONDANSETRON 4MG 2ML VIAL As Ordered ONE (18:51)
[2023-07-27] MEDS ORDERED: HYDROmorphone HCL 2MG/ML 1ML VIAL As Ordered ONE (18:51)
[2023-07-27] MEDS ORDERED: VASOPRESSIN INJ 20UNITS/ML 1ML VIAL As Ordered ONE (18:51)
[2023-07-27] MEDS ORDERED: KETOROLAC 60MG 2ML VIAL As Ordered ONE (18:51)
[2023-07-27] MEDS ORDERED: ACETAMINOPHEN 1000MG 100ML IV BAG As Ordered ONE (18:51)
[2023-07-27] MEDS ORDERED: PHENYLephrine 500MCG 5ML (100MCG/ML) SYRINGE As Ordered ONE (18:51)
[2023-07-27] MEDS ORDERED: fentaNYL 100 MCG/2 ML INJECTION As Ordered ONE (18:51)
[2023-07-27] MEDS ORDERED: ROCURONIUM BROMIDE 50MG/5ML VIAL As Ordered ONE (18:51)
[2023-07-27] MEDS ORDERED: SUGAMMADEX SODIUM 500 MG/5 ML VIAL (BRIDION) As Ordered ONE (18:51)
[2023-07-27] MEDS ORDERED: MIDAZOLAM INJ 2MG/2ML VIAL As Ordered ONE ×2 (18:51→19:31)
[2023-07-27] MEDS ORDERED: LIDOCAINE 2% 100MG/5ML SDV (FOR ANES.) As Ordered ONE (18:51)
[2023-07-27] MEDS ORDERED: propofoL 200 MG/20 ML VIAL As Ordered ONE (18:51)
[2023-07-27] MEDS ORDERED: MIDAZOLAM INJ 2MG/2ML VIAL IV ONE (19:40)
[2023-07-27] MEDS ORDERED: LR 1,000 ML IV SCH (19:40)
[2023-07-27] MEDS ORDERED: fentaNYL 100 MCG/2 ML INJECTION IV PRN (19:40)
[2023-07-27] MEDS ORDERED: ONDANSETRON 4MG 2ML VIAL IV PRN (19:40)
[2023-07-27] MEDS: HYDROMORPHONE HCL 0.5 MG/ 0.5 ML SYRINGE IV PRN ×2 (20:10→20:15)
[2023-07-27 20:30] VITALS: BP 129/86; TEMP 96.7; O2SAT 96
[2023-07-27 21:00] VITALS: BP 130/81; TEMP 96.7; O2SAT 97
[2023-07-27 21:30] VITALS: BP 124/74; TEMP 96; O2SAT 98
[2023-07-27 21:53] LABS: HEMATOCRIT 36.9 % (36.0-47.0)
[2023-07-27 21:58] LABS: HEMOGLOBIN 12.3 g/dl (12.0-15.5)
[2023-07-27 22:30] VITALS: BP 106/57; TEMP 96.6; O2SAT 97
[2023-07-27] MEDS ORDERED: CYCL5TAB PO (22:52)
[2023-07-27] MEDS ORDERED: ELIQ2.5T PO (22:52)
[2023-07-27] MEDS: LR 1,000 ML IV SCH (23:10)
[2023-07-27] MEDS ORDERED: HOME MED LIST COMPLETE! XX SCH (23:10)
[2023-07-27 23:30] VITALS: BP 121/70; TEMP 97.7; O2SAT 99
[2023-07-28] VITALS (8 sets, daily range): BP systolic 106–130; BP diastolic 56–79; TEMP 96.8–99; O2SAT 92–99
[2023-07-28] MEDS: MORPHINE 2 MG/ML 1ML VIAL IV PRN (01:03)
[2023-07-28] MEDS ORDERED: METOCLOPRAMIDE INJ 10MG/2ML VIAL IV ONE (02:55)
[2023-07-28] MEDS: HYDROMORPHONE HCL 0.5 MG/ 0.5 ML SYRINGE IV PRN ×3 (03:10→14:17)
[2023-07-28] MEDS: LR 1,000 ML IV SCH ×2 (04:30→13:58)
[2023-07-28] MEDS: PIPERACILLIN/TAZOBACTAM SOD 3.375 GM in D5W MINI-BAG PLUS 50 ML IV SCH ×4 (05:00→22:04)
[2023-07-28] MEDS: INSULIN LISPRO (NovoLOG) PER UNIT SC SCH ×2 (06:00)
[2023-07-28 06:18] LABS: HEMATOCRIT 27.9 % (36.0-47.0); MEAN CORPUSCULAR HEMOGLOBIN 33.7 pg (27.0-33.0); MEAN CORPUSCULAR HGB CONC 34.1 g/dl (32.0-36.5); MEAN CORPUSCULAR VOLUME 98.9 fl (80.0-96.0); RED BLOOD COUNT 2.82 10^6/uL (4.00-5.40); WHITE BLOOD COUNT 22.8 10^3/uL (4.0-10.0)
[2023-07-28 06:32] LABS: HEMOGLOBIN 9.5 g/dl (12.0-15.5)
[2023-07-28 06:33] LABS: PLATELET COUNT, AUTOMATED 365 10^3/uL (150-450)
[2023-07-28 06:36] LABS: HEMOGLOBIN A1c 4.9 % (4.0-6.0)
[2023-07-28] MEDS ORDERED: HEPARIN DRIP 25,000 UNITS in IV 1 EA IV SCH (06:45)
[2023-07-28] MEDS ORDERED: HEPARIN SOD (PORCINE) 5000UNITS/ML 1ML VIAL/SYRINGE IV PRN (06:45)
[2023-07-28] MEDS ORDERED: HEPARIN SOD (PORCINE) 5000UNITS/ML 1ML VIAL/SYRINGE IV ONE (06:45)
[2023-07-28 06:49] LABS: BLOOD UREA NITROGEN 14 MG/DL (9-23); CALCIUM LEVEL 7.5 MG/DL (8.5-10.1); CARBON DIOXIDE LEVEL 26 MMOL/L (20-31); CHLORIDE LEVEL 108 MMOL/L (98-107); CREATININE FOR GFR 0.56 MG/DL (0.55-1.30); GLOMERULAR FILTRATION RATE > 60.0 (>58); GLUCOSE, FASTING 107 MG/DL (60-100); MAGNESIUM LEVEL 1.2 MG/DL (1.8-2.4); POTASSIUM SERUM 3.9 MMOL/L (3.5-5.1); SODIUM LEVEL 142 MMOL/L (136-145)
[2023-07-28 06:56] LABS: ANISOCYTOSIS 1+; ATYPICAL LYMPH 2 % (0-5); LYMPHOCYTES 4 % (16-44); MONOCYTES 3 % (0-5); NEUTROPHILS 79 % (28-66); PLATELET ESTIMATE NORMAL (NORMAL)
[2023-07-28 06:57] LABS: BURR CELLS 1+; OVALOCYTES 1+; POIKILOCYTOSIS 1+
[2023-07-28 08:07] LABS: INR 1.4; PROTHROMBIN TIME 16.7 SECONDS (12.5-14.5)
[2023-07-28 08:08] LABS: PARTIAL THROMBOPLASTIN TIME 31.4 SECONDS (24.8-34.2)
[2023-07-28] MEDS ORDERED: INFLUENZA QUADRIVALENT PF VACCINE 0.5ML SYRINGE IM.IMMUN ONE (09:00)
[2023-07-28] MEDS ORDERED: PANTOPRAZOLE 40MG VIAL IV SCH (09:00)
[2023-07-28] MEDS: KETOROLAC 30 MG/ML 1ML VIAL IV SCH ×3 (11:15→22:03)
[2023-07-28] MEDS: MAG SULF 1GM/100ML (MAG RUN) 1 GM in IV 1 EA IV SCH ×4 (12:06→18:11)
[2023-07-28] MEDS: ONDANSETRON 4MG 2ML VIAL IV PRN (22:18)
[2023-07-29] VITALS (18 sets, daily range): BP systolic 98–125; BP diastolic 50–75; TEMP 97.3–98.9; O2SAT 96–100
[2023-07-29] MEDS: LR 1,000 ML IV SCH ×2 (00:03→21:26)
[2023-07-29] MEDS ORDERED: METOPROLOL 5 MG/5 ML VIAL IV STA (01:14)
[2023-07-29] MEDS ORDERED: SODIUM CHLORIDE 0.9% 1000ML IV ONE (01:15)
[2023-07-29 01:21] LABS: MEAN CORPUSCULAR HEMOGLOBIN 33.3 pg (27.0-33.0); MEAN CORPUSCULAR HGB CONC 34.5 g/dl (32.0-36.5); MEAN CORPUSCULAR VOLUME 96.6 fl (80.0-96.0); PLATELET COUNT, AUTOMATED 302 10^3/uL (150-450); RED BLOOD COUNT 1.77 10^6/uL (4.00-5.40); WHITE BLOOD COUNT 16.1 10^3/uL (4.0-10.0)
[2023-07-29 01:28] LABS: HEMATOCRIT 17.1 % (36.0-47.0); HEMOGLOBIN 5.9 g/dl (12.0-15.5)
[2023-07-29] MEDS ORDERED: NS 1,000 ML IV SCH (01:35)
[2023-07-29 02:07] LABS: ALBUMIN 1.8 G/DL (3.2-5.2); ALKALINE PHOSPHATASE 40 U/L (46-116); ALT/SGPT 12 U/L (7.0-40); AST/SGOT 27 U/L (<34); BILIRUBIN,TOTAL 0.4 MG/DL (0.3-1.2); BLOOD UREA NITROGEN 13 MG/DL (9-23); CALCIUM LEVEL 7.3 MG/DL (8.5-10.1); CARBON DIOXIDE LEVEL 27 MMOL/L (20-31); CHLORIDE LEVEL 107 MMOL/L (98-107); CREATININE FOR GFR 0.53 MG/DL (0.55-1.30); GLOMERULAR FILTRATION RATE > 60.0 (>58); GLUCOSE, FASTING 118 MG/DL (60-100); MAGNESIUM LEVEL 2.3 MG/DL (1.8-2.4); POTASSIUM SERUM 3.4 MMOL/L (3.5-5.1); SODIUM LEVEL 138 MMOL/L (136-145); TOTAL PROTEIN 3.9 G/DL (5.7-8.2)
[2023-07-29] MEDS: PANTOPRAZOLE SODIUM 40 MG in D5W 50 ML IV SCH ×5 (02:40→21:27)
[2023-07-29] MEDS: PIPERACILLIN/TAZOBACTAM SOD 3.375 GM in D5W MINI-BAG PLUS 50 ML IV SCH ×4 (04:25→21:27)
[2023-07-29] MEDS: KETOROLAC 30 MG/ML 1ML VIAL IV SCH ×4 (04:56→23:40)
[2023-07-29] MEDS: ONDANSETRON 4MG 2ML VIAL IV PRN ×2 (08:12→17:22)
[2023-07-29] MEDS: MORPHINE 2 MG/ML 1ML VIAL IV PRN ×2 (08:13→17:22)
[2023-07-29] MEDS: KCL 10MEQ/100ML SWI (KRUN) 10 MEQ in IV 1 EA IV SCH ×3 (08:13→10:51)
[2023-07-29 08:36] LABS: BASO % 0.2 % (0.0-1.0); HEMATOCRIT 26.1 % (36.0-47.0); LYMPH # 1.9 10^3/uL (1.5-5.0); LYMPH % 15.2 % (24.0-44.0); MEAN CORPUSCULAR HEMOGLOBIN 31.9 pg (27.0-33.0); MEAN CORPUSCULAR HGB CONC 35.2 g/dl (32.0-36.5); MEAN CORPUSCULAR VOLUME 90.6 fl (80.0-96.0); MONO % 7.5 % (2.0-8.0); NEUTROPHILS # 9.8 10^3/uL (1.5-8.5); NEUTROPHILS % 76.7 % (36.0-66.0); RED BLOOD COUNT 2.88 10^6/uL (4.00-5.40); WHITE BLOOD COUNT 12.7 10^3/uL (4.0-10.0)
[2023-07-29 08:39] LABS: INR 1.33
[2023-07-29 08:41] LABS: HEMOGLOBIN 9.2 g/dl (12.0-15.5); PLATELET COUNT, AUTOMATED 186 10^3/uL (150-450)
[2023-07-29 09:18] LABS: BLOOD UREA NITROGEN 12 MG/DL (9-23); CALCIUM LEVEL 6.8 MG/DL (8.5-10.1); CARBON DIOXIDE LEVEL 24 MMOL/L (20-31); CHLORIDE LEVEL 111 MMOL/L (98-107); CREATININE FOR GFR 0.45 MG/DL (0.55-1.30); GLOMERULAR FILTRATION RATE > 60.0 (>58); GLUCOSE, FASTING 93 MG/DL (60-100); MAGNESIUM LEVEL 2.1 MG/DL (1.8-2.4); POTASSIUM SERUM 3.9 MMOL/L (3.5-5.1); SODIUM LEVEL 145 MMOL/L (136-145)
[2023-07-29 10:30] LABS: HEMATOCRIT 26.9 % (36.0-47.0); HEMOGLOBIN 9.4 g/dl (12.0-15.5)
[2023-07-29 14:28] LABS: HEMATOCRIT 26.5 % (36.0-47.0); HEMOGLOBIN 9.3 g/dl (12.0-15.5)
[2023-07-29 18:26] LABS: HEMATOCRIT 27.2 % (36.0-47.0); HEMOGLOBIN 9.4 g/dl (12.0-15.5)
[2023-07-29 22:07] LABS: HEMATOCRIT 24.8 % (36.0-47.0); HEMOGLOBIN 8.7 g/dl (12.0-15.5)
[2023-07-30] MEDS: PANTOPRAZOLE SODIUM 40 MG in D5W 50 ML IV SCH ×5 (01:49→23:09)
[2023-07-30 03:32] VITALS: BP 103/63; TEMP 97.9; O2SAT 99
[2023-07-30] MEDS: PIPERACILLIN/TAZOBACTAM SOD 3.375 GM in D5W MINI-BAG PLUS 50 ML IV SCH ×4 (04:52→22:02)
[2023-07-30] MEDS: KETOROLAC 30 MG/ML 1ML VIAL IV SCH ×4 (04:52→23:10)
[2023-07-30 05:03] LABS: BASO % 0.3 % (0.0-1.0); EOS # 0.1 10^3/uL (0.0-0.5); EOS % 0.6 % (0.0-3.0); HEMATOCRIT 23.5 % (36.0-47.0); HEMOGLOBIN 8.2 g/dl (12.0-15.5); LYMPH # 1.9 10^3/uL (1.5-5.0); LYMPH % 17.9 % (24.0-44.0); MEAN CORPUSCULAR HEMOGLOBIN 31.8 pg (27.0-33.0); MEAN CORPUSCULAR HGB CONC 34.9 g/dl (32.0-36.5); MEAN CORPUSCULAR VOLUME 91.1 fl (80.0-96.0); MONO # 0.8 10^3/uL (0.0-0.8); MONO % 7.1 % (2.0-8.0); NEUTROPHILS # 7.9 10^3/uL (1.5-8.5); NEUTROPHILS % 73.4 % (36.0-66.0); PLATELET COUNT, AUTOMATED 204 10^3/uL (150-450); RED BLOOD COUNT 2.58 10^6/uL (4.00-5.40); WHITE BLOOD COUNT 10.7 10^3/uL (4.0-10.0)
[2023-07-30 05:19] LABS: BLOOD UREA NITROGEN 8 MG/DL (9-23); CALCIUM LEVEL 7.2 MG/DL (8.5-10.1); CARBON DIOXIDE LEVEL 20 MMOL/L (20-31); CHLORIDE LEVEL 110 MMOL/L (98-107); CREATININE FOR GFR 0.42 MG/DL (0.55-1.30); GLOMERULAR FILTRATION RATE > 60.0 (>58); GLUCOSE, FASTING 67 MG/DL (60-100); MAGNESIUM LEVEL 1.7 MG/DL (1.8-2.4); POTASSIUM SERUM 4.1 MMOL/L (3.5-5.1); SODIUM LEVEL 142 MMOL/L (136-145)
[2023-07-30] MEDS ORDERED: GLUCAGON INJ 1MG VIAL SC PRN (05:40)
[2023-07-30] MEDS ORDERED: GLUCOSE 4GM CHEW TABLET PO PRN (05:40)
[2023-07-30] MEDS ORDERED: DEXTROSE 50% 50ML SYRINGE IV PRN (05:40)
[2023-07-30 08:30] VITALS: BP 100/58; TEMP 97.9; O2SAT 99
[2023-07-30] MEDS ORDERED: MAG SULF 1GM/100ML (MAG RUN) 1 GM in IV 1 EA IV ONE (09:00)
[2023-07-30 11:48] VITALS: BP 117/76; TEMP 98.4; O2SAT 100
[2023-07-30 12:37] LABS: HEMATOCRIT 25.7 % (36.0-47.0)
[2023-07-30 17:10] VITALS: BP 123/66; TEMP 97.8; O2SAT 100
[2023-07-30 18:26] LABS: HEMATOCRIT 27.2 % (36.0-47.0); HEMOGLOBIN 9.7 g/dl (12.0-15.5)
[2023-07-30] MEDS: MORPHINE 2 MG/ML 1ML VIAL IV PRN (18:56)
[2023-07-30] MEDS: ONDANSETRON 4MG 2ML VIAL IV PRN (18:56)
[2023-07-30 19:39] VITALS: BP 119/57; TEMP 98.7; O2SAT 97
[2023-07-30 23:12] VITALS: BP 123/66; TEMP 98.1; O2SAT 100
[2023-07-31] VITALS (8 sets, daily range): BP systolic 117–145; BP diastolic 65–89; TEMP 97.4–99.2; O2SAT 96–100
[2023-07-31] MEDS: PANTOPRAZOLE SODIUM 40 MG in D5W 50 ML IV SCH (04:14)
[2023-07-31] MEDS: PIPERACILLIN/TAZOBACTAM SOD 3.375 GM in D5W MINI-BAG PLUS 50 ML IV SCH ×4 (04:14→21:54)
[2023-07-31] MEDS: KETOROLAC 30 MG/ML 1ML VIAL IV SCH (05:16)
[2023-07-31 05:29] LABS: BASO % 0.4 % (0.0-1.0); EOS # 0.2 10^3/uL (0.0-0.5); EOS % 1.4 % (0.0-3.0); HEMATOCRIT 23.1 % (36.0-47.0); HEMOGLOBIN 8.3 g/dl (12.0-15.5); LYMPH # 2.7 10^3/uL (1.5-5.0); LYMPH % 26.4 % (24.0-44.0); MEAN CORPUSCULAR HGB CONC 35.9 g/dl (32.0-36.5); MEAN CORPUSCULAR VOLUME 89.2 fl (80.0-96.0); MONO # 0.8 10^3/uL (0.0-0.8); MONO % 7.5 % (2.0-8.0); NEUTROPHILS # 6.6 10^3/uL (1.5-8.5); NEUTROPHILS % 63.4 % (36.0-66.0); RED BLOOD COUNT 2.59 10^6/uL (4.00-5.40); WHITE BLOOD COUNT 10.4 10^3/uL (4.0-10.0)
[2023-07-31 05:39] LABS: PLATELET COUNT, AUTOMATED 311 10^3/uL (150-450)
[2023-07-31 05:43] LABS: BLOOD UREA NITROGEN < 5 MG/DL (9-23); CALCIUM LEVEL 7.3 MG/DL (8.5-10.1); CARBON DIOXIDE LEVEL 25 MMOL/L (20-31); CHLORIDE LEVEL 109 MMOL/L (98-107); CREATININE FOR GFR 0.44 MG/DL (0.55-1.30); GLOMERULAR FILTRATION RATE > 60.0 (>58); GLUCOSE, FASTING 91 MG/DL (60-100); MAGNESIUM LEVEL 1.6 MG/DL (1.8-2.4); POTASSIUM SERUM 3.3 MMOL/L (3.5-5.1); SODIUM LEVEL 141 MMOL/L (136-145)
[2023-07-31] MEDS ORDERED: ISOVUE-370 76% 100ML VIAL As Ordered ONE (09:35)
[2023-07-31] MEDS: PANTOPRAZOLE 40MG TAB (PROTONIX) PO SCH (10:37)
[2023-07-31] MEDS: MORPHINE 2 MG/ML 1ML VIAL IV PRN (14:22)
[2023-07-31] MEDS: ONDANSETRON 4MG 2ML VIAL IV PRN (14:29)
[2023-07-31 14:34] LABS: HEMATOCRIT 30.4 % (36.0-47.0); HEMOGLOBIN 10.8 g/dl (12.0-15.5)
[2023-07-31 14:51] LABS: MAGNESIUM LEVEL 1.6 MG/DL (1.8-2.4); POTASSIUM SERUM 3.3 MMOL/L (3.5-5.1)
[2023-07-31] MEDS ORDERED: POTASSIUM CHLORIDE 10MEQ SR TABLET PO ONE (15:50)
[2023-07-31] MEDS ORDERED: WARFARIN SOD 5MG TAB PO SCH (17:00)
[2023-07-31] MEDS: MAG SULF 1GM/100ML (MAG RUN) 1 GM in IV 1 EA IV SCH ×2 (17:35→18:55)
[2023-07-31] MEDS: MAGNESIUM OXIDE 400MG TAB (MAG-OX) PO SCH (21:54)
[2023-07-31] MEDS: POTASSIUM CHLORIDE 10MEQ SR TABLET PO SCH (21:54)
[2023-08-01] VITALS: BP 145/65; TEMP 97.6; O2SAT 98
[2023-08-01 04:00] VITALS: BP 121/69; TEMP 97.6; O2SAT 97
[2023-08-01] MEDS: PIPERACILLIN/TAZOBACTAM SOD 3.375 GM in D5W MINI-BAG PLUS 50 ML IV SCH ×3 (04:06→15:56)
[2023-08-01] MEDS: ACETAMINOPHEN TAB 650MG DOSE (2X325MG) PO PRN ×2 (04:29→18:45)
[2023-08-01 06:28] LABS: BASO # 0.1 10^3/uL (0.0-0.2); BASO % 0.7 % (0.0-1.0); EOS # 0.2 10^3/uL (0.0-0.5); EOS % 1.8 % (0.0-3.0); HEMATOCRIT 28.8 % (36.0-47.0); HEMOGLOBIN 10.3 g/dl (12.0-15.5); LYMPH # 2.3 10^3/uL (1.5-5.0); LYMPH % 23.8 % (24.0-44.0); MEAN CORPUSCULAR HEMOGLOBIN 31.8 pg (27.0-33.0); MEAN CORPUSCULAR HGB CONC 35.8 g/dl (32.0-36.5); MEAN CORPUSCULAR VOLUME 88.9 fl (80.0-96.0); NEUTROPHILS % 62.8 % (36.0-66.0); PLATELET COUNT, AUTOMATED 359 10^3/uL (150-450); RED BLOOD COUNT 3.24 10^6/uL (4.00-5.40); WHITE BLOOD COUNT 9.6 10^3/uL (4.0-10.0)
[2023-08-01 06:39] LABS: INR 1.49; PROTHROMBIN TIME 17.5 SECONDS (12.5-14.5)
[2023-08-01 07:28] LABS: BLOOD UREA NITROGEN < 5 MG/DL (9-23); CALCIUM LEVEL 7.4 MG/DL (8.5-10.1); CARBON DIOXIDE LEVEL 26 MMOL/L (20-31); CHLORIDE LEVEL 108 MMOL/L (98-107); CREATININE FOR GFR 0.47 MG/DL (0.55-1.30); GLOMERULAR FILTRATION RATE > 60.0 (>58); GLUCOSE, FASTING 111 MG/DL (60-100); POTASSIUM SERUM 3.8 MMOL/L (3.5-5.1); SODIUM LEVEL 140 MMOL/L (136-145)
[2023-08-01 07:38] VITALS: BP 144/84; TEMP 97.3; O2SAT 97
[2023-08-01] MEDS: PANTOPRAZOLE 40MG TAB (PROTONIX) PO SCH (09:50)
[2023-08-01] MEDS: MAGNESIUM OXIDE 400MG TAB (MAG-OX) PO SCH ×2 (09:50→21:32)
[2023-08-01] MEDS: POTASSIUM CHLORIDE 10MEQ SR TABLET PO SCH ×2 (09:50→21:32)
[2023-08-01] MEDS: ONDANSETRON 4MG 2ML VIAL IV PRN ×2 (13:23→21:33)
[2023-08-01 15:35] VITALS: BP 121/65; TEMP 97; O2SAT 100
[2023-08-01] MEDS ORDERED: WARFARIN SOD 7.5MG TAB PO SCH (17:00)
[2023-08-01 20:23] VITALS: BP 128/81; TEMP 97.6; O2SAT 98
[2023-08-01] MEDS: AUGMENTIN 875 MG TAB PO SCH (21:32)
[2023-08-02 05:32] VITALS: BP 114/59; TEMP 97.3; O2SAT 98
[2023-08-02 07:25] LABS: BASO # 0.1 10^3/uL (0.0-0.2); BASO % 0.6 % (0.0-1.0); EOS # 0.2 10^3/uL (0.0-0.5); EOS % 2.2 % (0.0-3.0); HEMATOCRIT 30.2 % (36.0-47.0); HEMOGLOBIN 10.5 g/dl (12.0-15.5); MEAN CORPUSCULAR HEMOGLOBIN 31.5 pg (27.0-33.0); MEAN CORPUSCULAR HGB CONC 34.8 g/dl (32.0-36.5); MEAN CORPUSCULAR VOLUME 90.7 fl (80.0-96.0); MONO % 9.1 % (2.0-8.0); NEUTROPHILS # 7.1 10^3/uL (1.5-8.5); NEUTROPHILS % 67.9 % (36.0-66.0); PLATELET COUNT, AUTOMATED 413 10^3/uL (150-450); RED BLOOD COUNT 3.33 10^6/uL (4.00-5.40); WHITE BLOOD COUNT 10.4 10^3/uL (4.0-10.0)
[2023-08-02 07:37] LABS: INR 3.85; PROTHROMBIN TIME 36.4 SECONDS (12.5-14.5)
[2023-08-02 07:53] LABS: BLOOD UREA NITROGEN < 5 MG/DL (9-23); CARBON DIOXIDE LEVEL 25 MMOL/L (20-31); CHLORIDE LEVEL 110 MMOL/L (98-107); CREATININE FOR GFR 0.52 MG/DL (0.55-1.30); GLOMERULAR FILTRATION RATE > 60.0 (>58); GLUCOSE, FASTING 79 MG/DL (60-100); MAGNESIUM LEVEL 1.8 MG/DL (1.8-2.4); POTASSIUM SERUM 4.7 MMOL/L (3.5-5.1); SODIUM LEVEL 143 MMOL/L (136-145)
[2023-08-02] MEDS: PANTOPRAZOLE 40MG TAB (PROTONIX) PO SCH (08:37)
[2023-08-02] MEDS: AUGMENTIN 875 MG TAB PO SCH (08:37)
[2023-08-02] MEDS: ACETAMINOPHEN TAB 650MG DOSE (2X325MG) PO PRN (08:37)
[2023-08-02] MEDS: MAGNESIUM OXIDE 400MG TAB (MAG-OX) PO SCH (08:38)
[2023-08-02] MEDS: POTASSIUM CHLORIDE 10MEQ SR TABLET PO SCH (08:38)
[2023-08-02] MEDS: ONDANSETRON 4MG 2ML VIAL IV PRN (08:41)
[2023-08-02] MEDS ORDERED: PANT40TA29 PO (08:57)
[2023-08-02] MEDS ORDERED: MAGN400T2 PO (08:57)
[2023-08-02] MEDS ORDERED: AMOX875T2 PO (08:57)
[2023-08-02] MEDS ORDERED: WARF-23 PO ×2 (08:59→10:03)
== END 2023-08-02 11:55 | disposition home or self-care (01) | DRG 329 ==
LOC: M PCU 11:55 → M MSPAV 08-01 20:19
PROVIDERS: ADMIT Family Medicine; ATTEND General Practice
PROC: 0DBB0ZZ Excision of Ileum, Open Approach (ICD-10-PCS; principal; 2023-07-27 14:40)
PROC: 30233N1 Transfusion of Nonautologous Red Blood Cells into Peripheral Vein, Percutaneous Approach (ICD-10-PCS; 2023-07-29)
DX: K56.609 Unspecified intestinal obstruction, unspecified as to partial versus complete obstruction (principal); K55.029 Acute infarction of small intestine, extent unspecified; D68.61 Antiphospholipid syndrome; E87.20 Acidosis, unspecified; R18.8 Other ascites; D62 Acute posthemorrhagic anemia; K92.2 Gastrointestinal hemorrhage, unspecified; M32.9 Systemic lupus erythematosus, unspecified; K76.0 Fatty (change of) liver, not elsewhere classified; R91.1 Solitary pulmonary nodule; Z98.84 Bariatric surgery status; Z90.49 Acquired absence of other specified parts of digestive tract; Z87.891 Personal history of nicotine dependence; R73.9 Hyperglycemia, unspecified; D69.6 Thrombocytopenia, unspecified; D75.838 Other thrombocytosis; E83.42 Hypomagnesemia; E88.09 Other disorders of plasma-protein metabolism, not elsewhere classified; E87.6 Hypokalemia; Z79.01 Long term (current) use of anticoagulants; Z88.8 Allergy status to other drugs, medicaments and biological substances; Z53.31 Laparoscopic surgical procedure converted to open procedure

== ENCOUNTER → 2023-08-03 | Outpatient (CLI) | payer MEDICAID, MEDICARE ==
[~2023-08-03] MED LIST changes: +AMOX875T2 PO; +CYCL5TAB PO; +MAGN400T2 PO; +PANT40TA29 PO; +WARF-23 PO
[2023-08-03 14:00] LABS: INR 3.82; PROTHROMBIN TIME 36.2 SECONDS (12.5-14.5)
== END ==
LOC: M LAB 12:59
PROVIDERS: ATTEND General Practice
DX: D68.61 Antiphospholipid syndrome (principal)

== ENCOUNTER → 2023-08-04 | Outpatient (CLI) | payer MEDICAID, MEDICARE ==
[2023-08-04 13:22] LABS: INR 4.11; PROTHROMBIN TIME 38.3 SECONDS (12.5-14.5)
== END ==
LOC: M LAB 12:43
PROVIDERS: ATTEND General Practice
DX: Z79.01 Long term (current) use of anticoagulants (principal)

== ENCOUNTER → 2023-08-05 | Outpatient (CLI) | payer MEDICAID ==
[2023-08-05 11:36] LABS: INR 3.76; PROTHROMBIN TIME 35.7 SECONDS (12.5-14.5)
== END ==
LOC: M LAB 10:46
PROVIDERS: ATTEND General Practice
DX: D68.61 Antiphospholipid syndrome (principal); Z79.01 Long term (current) use of anticoagulants

== ENCOUNTER → 2023-08-06 | Outpatient (CLI) | payer MEDICAID, MEDICARE ==
[2023-08-06 09:55] LABS: INR 2.98; PROTHROMBIN TIME 29.9 SECONDS (12.5-14.5)
== END ==
LOC: M LAB 09:01
PROVIDERS: ATTEND General Practice
DX: Z79.01 Long term (current) use of anticoagulants (principal)

== ENCOUNTER → 2023-08-07 | Outpatient (CLI) | payer MEDICAID ==
[2023-08-07 11:47] LABS: INR 2.48
== END ==
LOC: M LAB 11:01
PROVIDERS: ATTEND General Practice
DX: D68.61 Antiphospholipid syndrome (principal)

== ENCOUNTER → 2023-08-08 | Outpatient (CLI) | payer MEDICAID, MEDICARE ==
[2023-08-08 11:24] LABS: BASO # 0.1 10^3/uL (0.0-0.2); EOS # 0.1 10^3/uL (0.0-0.5); EOS % 1.5 % (0.0-3.0); HEMOGLOBIN 12.5 g/dl (12.0-15.5); LYMPH # 2.9 10^3/uL (1.5-5.0); LYMPH % 36.2 % (24.0-44.0); MEAN CORPUSCULAR HEMOGLOBIN 31.2 pg (27.0-33.0); MEAN CORPUSCULAR HGB CONC 32.9 g/dl (32.0-36.5); MEAN CORPUSCULAR VOLUME 94.8 fl (80.0-96.0); MONO # 0.5 10^3/uL (0.0-0.8); MONO % 6.9 % (2.0-8.0); NEUTROPHILS # 4.3 10^3/uL (1.5-8.5); NEUTROPHILS % 53.9 % (36.0-66.0); PLATELET COUNT, AUTOMATED 727 10^3/uL (150-450); RED BLOOD COUNT 4.01 10^6/uL (4.00-5.40); WHITE BLOOD COUNT 7.9 10^3/uL (4.0-10.0)
[2023-08-08 12:00] LABS: ALKALINE PHOSPHATASE 98 U/L (46-116); ALT/SGPT 17 U/L (7.0-40); AST/SGOT 14 U/L (<34); BILIRUBIN,TOTAL 0.4 MG/DL (0.3-1.2); BLOOD UREA NITROGEN < 5 MG/DL (9-23); CALCIUM LEVEL 8.7 MG/DL (8.5-10.1); CARBON DIOXIDE LEVEL 24 MMOL/L (20-31); CHLORIDE LEVEL 109 MMOL/L (98-107); CREATININE FOR GFR 0.54 MG/DL (0.55-1.30); GLOMERULAR FILTRATION RATE > 60.0 (>58); GLUCOSE, FASTING 92 MG/DL (60-100); POTASSIUM SERUM 4.1 MMOL/L (3.5-5.1); SODIUM LEVEL 141 MMOL/L (136-145); TOTAL PROTEIN 6.1 G/DL (5.7-8.2)
== END ==
LOC: M LAB 10:45
PROVIDERS: ATTEND Physician Assistant
DX: Z90.49 Acquired absence of other specified parts of digestive tract (principal)

== ENCOUNTER → 2023-08-10 | Outpatient (CLI) | payer MEDICAID, MEDICARE ==
[2023-08-10 11:56] LABS: INR 3.48; PROTHROMBIN TIME 33.7 SECONDS (12.5-14.5)
== END ==
LOC: M LAB 10:56
PROVIDERS: ATTEND Student in an Organized Health Care Education/Training Program
DX: D68.61 Antiphospholipid syndrome (principal)

== ENCOUNTER → 2023-08-11 | Outpatient (CLI) | payer MEDICAID ==
[2023-08-11 11:32] LABS: INR 2.72; PROTHROMBIN TIME 27.8 SECONDS (12.5-14.5)
== END ==
LOC: M LAB 10:39
PROVIDERS: ATTEND Student in an Organized Health Care Education/Training Program
DX: D68.61 Antiphospholipid syndrome (principal)

== ENCOUNTER → 2023-09-23 | Outpatient (CLI) | payer MEDICAID | LOC: M PLAIMG 15:40 | PROVIDERS: ATTEND Student in an Organized Health Care Education/Training Program | DX: R10.9 Unspecified abdominal pain (principal) ==

== ENCOUNTER → 2023-11-21 | Outpatient (CLI) | payer MEDICAID, MEDICARE ==
[~2023-11-21] MED LIST changes: +GASTROGRAFIN SOLUTION 30ML As Ordered ONE; -KLON0.5T PO; +KLON0.5T8 PO; -KLON1TAB PO; +KLON1TAB13 PO; -MIRA1POW3 PO; +MIRA33506 PO
== END ==
LOC: M RAD 16:30
PROVIDERS: ATTEND Student in an Organized Health Care Education/Training Program
DX: R19.7 Diarrhea, unspecified (principal)
CPT/HCPCS: 72192; Q9963

== ENCOUNTER → 2023-12-03 | Outpatient (CLI) | payer MEDICAID, MEDICARE ==
[~2023-12-03] MED LIST changes: -GASTROGRAFIN SOLUTION 30ML As Ordered ONE
== END ==
LOC: M PLALAB 12:41
PROVIDERS: ATTEND Student in an Organized Health Care Education/Training Program
DX: D68.61 Antiphospholipid syndrome (principal)

== ENCOUNTER → 2023-12-03 | Outpatient (CLI) | payer MEDICAID, MEDICARE ==
[2023-12-03 15:21] LABS: BASO # 0.1 10^3/uL (0.0-0.2); BASO % 0.8 % (0.0-1.0); EOS # 0.1 10^3/uL (0.0-0.5); EOS % 0.8 % (0.0-3.0); HEMATOCRIT 37.4 % (36.0-47.0); HEMOGLOBIN 12.5 g/dl (12.0-15.5); LYMPH # 4.5 10^3/uL (1.5-5.0); MEAN CORPUSCULAR HEMOGLOBIN 33.2 pg (27.0-33.0); MEAN CORPUSCULAR HGB CONC 33.4 g/dl (32.0-36.5); MEAN CORPUSCULAR VOLUME 99.5 fl (80.0-96.0); MONO # 0.6 10^3/uL (0.0-0.8); MONO % 6.9 % (2.0-8.0); NEUTROPHILS # 3.5 10^3/uL (1.5-8.5); NEUTROPHILS % 40.3 % (36.0-66.0); PLATELET COUNT, AUTOMATED 294 10^3/uL (150-450); RED BLOOD COUNT 3.76 10^6/uL (4.00-5.40); WHITE BLOOD COUNT 8.7 10^3/uL (4.0-10.0)
[2023-12-03 15:46] LABS: BLOOD UREA NITROGEN 5 MG/DL (9-23); CALCIUM LEVEL 8.3 MG/DL (8.5-10.1); CARBON DIOXIDE LEVEL 25 MMOL/L (20-31); CHLORIDE LEVEL 111 MMOL/L (98-107); CREATININE FOR GFR 0.54 MG/DL (0.55-1.30); GLOMERULAR FILTRATION RATE > 60.0 (>58); GLUCOSE, FASTING 67 MG/DL (60-100); MAGNESIUM LEVEL 1.7 MG/DL (1.8-2.4); POTASSIUM SERUM 3.5 MMOL/L (3.5-5.1); SODIUM LEVEL 140 MMOL/L (136-145)
== END ==
LOC: M PLALAB 12:45
PROVIDERS: ATTEND Student in an Organized Health Care Education/Training Program
DX: R19.7 Diarrhea, unspecified (principal)

== ENCOUNTER → 2024-02-13 | Outpatient (CLI) | payer MEDICARE ==
[~2024-02-13] MED LIST changes: +ISOVUE-370 76% 100ML VIAL As Ordered ONE; +ONDA-282 PO; -ONDA4TAB6 PO
== END ==
LOC: M RAD 07:17
PROVIDERS: ATTEND Student in an Organized Health Care Education/Training Program
DX: K76.0 Fatty (change of) liver, not elsewhere classified (principal); Z90.49 Acquired absence of other specified parts of digestive tract
CPT/HCPCS: 74175; Q9967

== ENCOUNTER → 2024-07-07 | Outpatient (CLI) | payer MEDICARE ==
[~2024-07-07] MED LIST changes: -CYCL5TAB PO; +CYCL5TAB4 PO; -ISOVUE-370 76% 100ML VIAL As Ordered ONE
[2024-07-07 13:17] LABS: BASO % 0.3 % (0.0-1.0); EOS % 0.1 % (0.0-3.0); HEMATOCRIT 34.1 % (36.0-47.0); HEMOGLOBIN 11.9 g/dl (12.0-15.5); LYMPH # 1.2 10^3/uL (1.5-5.0); LYMPH % 9.6 % (24.0-44.0); MEAN CORPUSCULAR HEMOGLOBIN 33.9 pg (27.0-33.0); MEAN CORPUSCULAR HGB CONC 34.9 g/dl (32.0-36.5); MEAN CORPUSCULAR VOLUME 97.2 fl (80.0-96.0); MONO # 0.3 10^3/uL (0.0-0.8); MONO % 2.1 % (2.0-8.0); NEUTROPHILS # 10.5 10^3/uL (1.5-8.5); NEUTROPHILS % 87.5 % (36.0-66.0); PLATELET COUNT, AUTOMATED 477 10^3/uL (150-450); RED BLOOD COUNT 3.51 10^6/uL (4.00-5.40)
[2024-07-07 13:18] LABS: PERCENT SATURATION 29.1 % (13.2-45.0)
[2024-07-07 13:20] LABS: FOLATE 9.2 NG/ML (>5.4)
[2024-07-07 13:26] LABS: INR 2.94; PROTHROMBIN TIME 30.6 SECONDS (12.5-14.5)
== END ==
LOC: M PLALAB 10:31
PROVIDERS: ATTEND Internal Medicine Hematology
DX: D68.61 Antiphospholipid syndrome (principal); Z98.84 Bariatric surgery status; D50.9 Iron deficiency anemia, unspecified; D46.4 Refractory anemia, unspecified

== ENCOUNTER → 2024-07-07 | Outpatient (CLI) | payer MEDICARE ==
[~2024-07-07] MED LIST changes: +CYCL5TAB PO; -CYCL5TAB4 PO
[2024-07-07 13:15] LABS: BASO % 0.3 % (0.0-1.0); HEMATOCRIT 34.7 % (36.0-47.0); HEMOGLOBIN 11.9 g/dl (12.0-15.5); LYMPH # 1.1 10^3/uL (1.5-5.0); MEAN CORPUSCULAR HEMOGLOBIN 33.8 pg (27.0-33.0); MEAN CORPUSCULAR HGB CONC 34.3 g/dl (32.0-36.5); MEAN CORPUSCULAR VOLUME 98.6 fl (80.0-96.0); MONO # 0.3 10^3/uL (0.0-0.8); MONO % 2.3 % (2.0-8.0); NEUTROPHILS # 10.5 10^3/uL (1.5-8.5); NEUTROPHILS % 87.9 % (36.0-66.0); PLATELET COUNT, AUTOMATED 495 10^3/uL (150-450); RED BLOOD COUNT 3.52 10^6/uL (4.00-5.40)
[2024-07-07 13:17] LABS: C REACTIVE PROTEIN QUANTITATIV < 0.40 MG/DL (<1.0)
[2024-07-07 13:23] LABS: ERYTHROCYTE SEDIMENTATION RATE 4 mm/hr (0-20)
[2024-07-07 14:07] LABS: ALBUMIN 3.4 G/DL (3.2-5.2); ALKALINE PHOSPHATASE 129 U/L (35-104); ALT/SGPT 18 U/L (7.0-40); AST/SGOT 18 U/L (<34); BILIRUBIN,TOTAL 0.3 MG/DL (0.3-1.2); BLOOD UREA NITROGEN < 5 MG/DL (9-23); CALCIUM LEVEL 9.2 MG/DL (8.5-10.1); CARBON DIOXIDE LEVEL 29 MMOL/L (20-31); CHLORIDE LEVEL 106 MMOL/L (98-107); CREATININE FOR GFR 0.84 MG/DL (0.55-1.30); GLOMERULAR FILTRATION RATE > 60.0 (>58); GLUCOSE, FASTING 95 MG/DL (60-100); POTASSIUM SERUM 2.5 MMOL/L (3.5-5.1); SODIUM LEVEL 142 MMOL/L (136-145); TOTAL PROTEIN 6.3 G/DL (5.7-8.2)
[2024-07-08 15:16] LABS: ANA SCREEN, IFA NEGATIVE (NEGATIVE)
== END ==
LOC: M PLALAB 10:28
PROVIDERS: ATTEND Internal Medicine Rheumatology
DX: M79.7 Fibromyalgia (principal); M32.19 Other organ or system involvement in systemic lupus erythematosus; D68.61 Antiphospholipid syndrome; L93.0 Discoid lupus erythematosus; Z79.899 Other long term (current) drug therapy